=== PATIENT | female | born 1985 | race Caucasian/White ===

== ENCOUNTER 2022-12-09 15:40 | Emergency (ER) | payer BC, MEDICAID, SELFPAY ==
--- OUTSIDE RECORDS SUMMARY | 2022-12-09 15:48 | XMS_ITS ---
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-inflammatorie s (NSAID) Z79.1 Active 884785500044017 Problem Polyarthralgia M25.50 Active 95033002 Problem Myoclonus 333.2 Active 75475419 Problem Fibromyalgia M79.7 Active 007982165 Problem Asthma 493.90 Active 421112444 Problem Vitamin D deficiency E55.9 Active 79200759 Problem Overweight E66.3 Active 602501664 Problem Positive NAEEM (antinuclear antibody) R76.8 Active 814700523 Problem Low back pain M54.5 Active 704223268 ALLERGIES Substance Reaction Event Type Date Status Aspirin unknown Non Drug Allergy Sep, Active paxil sore throat and nose Non Drug Allergy Sep, 022 Active loratadine itcy Non Drug Allergy Sep, Active Amitriptyline Intolerance , keeps awake Non Drug Allergy 2 Sep, Active Cymbalta nausea , and too tired Non Drug Allergy Sep, Active meclizine Unknown Non Drug Allergy Sep, Active Lyrica dizziness, depression ,intolerence Non Drug All ergy Sep, Active Percoset vomiting , dizziness , foggy head Non Drug Moshe rgy Sep, Active Wellbuterin RASH Non Drug Allergy Sep, Activ e ENCOUNTERS Encounter Location Date Diagnosis [facility] [address] [id number] Sep, [facility] [address] [id number] Sep, [facility] [address] [id number] Sep, Herniation of lumbar intervertebral disc with radiculopathy M51.16 ; Right leg weakness M62.81 and Low back pain, unspecified M54.50 [facility] [address] [id number] Aug, Encounter for other administrative examinations Z02.[address] [id number] Jul, Dysuria R30.0 and Acute pharyngitis, unspecified etiology J02.9 [facility] [address] [id number] Jun, [facility] [address] [id number] Apr, Atypical pneumonia J18.9 [facility] [address] [id number] Feb, [facility] [address] [id number] Feb, [facility] [address] [id number] Feb, Encounter for screening laboratory testing for COVID-19 virus Z20.822 [facility] [address] [place] [id number] November, Cough R05 [facility] [address] [id number] Oct, Acute cystitis with hematuria N30.01 and Sprain of other ligament of left ankle, initial encounter S93.492A [facility] [address] [place] [id number] Jul, [facility] [address] [place] [id number] Jul, [address] [id number] Jun, Encounter for occupational health assessment Z02.89 ; Encounter for other administrative examinations Z02.89 and Encounter for PPD test Z11.[address] [id number] Apr, [address] [id number] Apr, [address] [id number] Apr, Fibromyalgia M79.7 ; Positive NAEEM (antinuclear antibody) R76.8 ; Polyarthralgia M25.50 and Low back pain M54.[address] [id number] Dec, Polyarthralgia 719.[address] [id number] Oct, Polyarthralgia 719.49 and Fibromyalgia 729.[address] [id number] Sep, Fibromyalgia 729.1 ; Back pain 724.5 ; Polyarthralgia 719.49 and Nonspecific immunological findings 795.[address] [id number] Jun, [address] [id number] Mar, Back pain 724.5 ; Nonspecific immunological findings 795.79 ; Polyarthralgia 719.49 ; terminal clerk use of medications V58.69 ; Fibromyalgia 729.1 and Vitamin d deficiency 268.[address] [id number] Feb, Fibromyalgia 729.1 ; Memory loss 780.93 ; Polyarthralgia 719.49 ; MALAISE AND FATIGUE NEC 780.79 ; Back pain 724.5 and senior living use of medications V58.69 [facility] [address] [id number] Sep, [facility] [address] [place], [place] [id number] Sep, Memory loss 780.93 and Myoclonus 333.2 [facility] [address] [place], [place] [id number] Sep, Memory loss 780.93 IMMUNIZATIONS Vaccine Route Administration Date Status Flu (adult) IM Intramuscular Jul 19, 2020 Administere d PPD ID Intradermal Jul 16, 2020 Administered SOCIAL HISTORY Never Assessed REASON FOR REFERRAL FUNCTIONAL STATUS PLAN OF CARE Activity Details VITAL SIGNS Height 64 in 2021-10-06 Height 64 in 2021-07-19 Height 64 in 2021-04-28 Height 64 in 2020-11-04 Height 64 in 2015-04-23 Height 64 in 2014-10-23 Height 64 in 2014-10-01 Height 64 in 2013-04-04 Height 64 in 2013-03-16 Weight 180 lbs 2021-10-06 Weight 185 lbs 2021-04-28 Weight 154 lbs 2015-04-23 Weight 152 lbs 2014-10-23 Weight 150 lbs 2014-10-01 Weight 170 lbs 2013-04-04 Weight 170 lbs 2013-03-16 Temperature 97.0 degrees Fahrenheit Temperature 97.6 degrees Fahrenheit Temperature 98.5 degrees Fahrenheit Heart Rate 103 /min 2021-10-06 Heart Rate 101 /min 2021-07-19 Heart Rate 80 /min 2021-04-28 Heart Rate 92 /min 2020-11-04 Heart Rate 80 /min 2015-04-23 Heart Rate 80 /min 2014-10-23 Heart Rate 80 /min 2014-10-01 Heart Rate 88 /min 2013-04-04 Heart Rate 80 /min 2013-03-16 Oximetry 98 2021-10-06 Oximetry 100 2021-07-19 Oximetry 98 2021-04-28 Oximetry 99 2020-11-04 BMI 30.89 kg/m2 2021-10-06 BMI 31.75 kg/m2 2021-04-28 BMI 26.43 kg/m2 2015-04-23 BMI 26.09 kg/m2 2014-10-23 BMI 25.74 kg/m2 2014-10-01 BMI 29.18 kg/m2 2013-04-04 BMI 29.18 kg/m2 2013-03-16 Blood pressure systolic 159 mm Hg Blood pressure diastolic 101 mm Hg 2021-07 MEDICATIONS Medication Instructions Dosage Frequency Start Date End Date Du ration Status HYDROcodone-Acetamin ophen 5-325 MG 5 Activ e Cephalexin 500 MG 5 Active Cyclobenzaprine HCl 5 MG 4 Active PROCEDURES Procedure Date Ordered Result Body Site [facility] - COVID 19 TESTING Mar 09, 2021 OCD Varicella Titer Jul 16, 2020 [facility] - X-RAY EXAM CHEST 2 VIEWS November 27, 2020 OCD Urine Drug Screen (collection only) Jul 16, 2020 CORONAVIRUS AG IA Jul 19, 2021 OCD Hepatitis B Titer Jul 16, 2020 OCD Urine Drug Screen (collection only) Sep 05, 2021 [facility] - HOSPITAL OUT PT CLINIC COLLECTION FOR SARS COV J an 2021 OCD Administration Fee (sepa rate charge for each immunization) first vaccine Jul 16, 2020 OCD Rubella Titer Jul 16, 2020 [facility] - URINALYSIS NONAUTO W/O SCOPE November 04, 2020 OCD Mumps Titer Jul 16, 2020 Flu VACC 6 MONTHS > Jul 19, 2020 OCD Measles Titer Jul 16, 2020 [facility] - URINALYSIS NONAUTO W/O SCOPE Jul 19, 2021 [facility] - HOSPITAL OUT PT CLINIC COLLECTION FOR SARS COV A 2020 IMMUNIZATION ADMINISTRATION Jul 19, 2020 OCD Mantoux test for Tuberculosis (includes read) Jul 16, 2020 AT LEAST 1 RX TRANSMIT ERX SYS Apr 04, 2013 RESULTS Name Result Date Reference Range URINALYSIS DIP w/REFLEX MICRO 2021-09-05 COLOR Yellow YELLOW CLARITY Clear CLEAR SPECIFIC GRAVITY 1.020 1.000-1.030 pH 7.0 5.0-8.0 PROTEIN Negative NEGATIVE GLUCOSE Negative NEGATIVE KETONES Trace NEGATIVE UROBILINOGEN 0.2 E.U./dL 0.2 E.U./DL BILIRUBIN Negative NEGATIVE BLOOD Negative NEGATIVE LEUKOCYTES Negative NEGATIVE NITRITES Negative NEGATIVE HCG SCREEN, URINE 2021-09-05 HCG SCREEN, URINE NEGATIVE NEGATIVE UHCG-TEXT If a urine specimen is too dilute (ie: Specific [place] <1.005) it may not contain customer service representative teller levels of hcg. If the test is negative and is still suspected, a first morning specimen should be obtained and retested. CULTURE URINE 2021-07-19 [facility] URINALYSIS DIP 2021-07-19 CLARITY clear COLOR yellow NITRITES neg REDUCING SUBSTANCES SPECIFIC GRAVITY 1.025 UROBILINOGEN neg BILIRUBIN neg BLOOD neg GLUCOSE neg KETONES neg pH 5 PROTEIN trace LEUKOCYTES + COVID 19 (POS) SOFIA2 SARS Ag 2021-07-19 Flu A Flu B SARS negative CBC, WITH AUTO DIFF 2021-06-28 WBC 8.9 4.8-10.8 RBC 3.92 4.20-5.40 HGB 9.6 12.0-16.0 HCT 30.7 37.0-47.0 MCV 78.3 81.0-99.0 MCH 24.5 27.0-31.0 MCHC 31.3 32.0-37.0 RDW-CV 15.9 11.5-14.5 PLT 368 130-400 MPV 9.8 7.4-10.4 NE% 52.1 42.2-75.2 LY% 33.0 20.5-51.1 MO% 9.5 1.7-9.3 EO% 4.6 0.9-2.9 BA% 0.6 0.0-0.8 NE# 4.7 1.4-6.5 LY# 3.0 1.2-3.4 MO# 0.9 0.1-0.6 EO# 0.4 0.0-0.2 BA# 0.1 0.0-0.2 COMPREHENSIVE METABOLIC PROFILE 2021-06-28 SODIUM 136 134-143 POTASSIUM 3.4 3.5-5.1 CHLORIDE 103 98-111 CO2 23 22-32 CALCIUM 8.8 8.9-10.3 BUN 13 8-26 CREATININE 0.74 0.44-1.00 TOTAL BILIRUBIN 0.2 0.3-1.2 TOTAL PROTEIN 7.4 6.5-8.1 ALBUMIN 4.1 3.5-5.0 ALKALINE PHOS 65 32-92 AST 19 15-41 ALT 12 14-54 A/GAP 10.0 3.0-12.0 B/CR 17.6 8.0-20.0 OSMOLARITY 273 275-295 GLOBULIN 3.3 2.3-3.5 A/G 1.2 1.0-2.5 D-DIMER 2021-06-28 MAGNESIUM 2021-06-28 MAGNESIUM 2.2 1.8-2.5 TROPONIN I 2021-06-28 TROPONIN I <0.01 <=0.05 TROP HEAD Elevated levels of T roponin I are detectable in plasma within 3-6 hours after onset of myocardial infarction, reach peak concentrations in approximately 12-16 hours, and remain elevated for 4-9 days following an AMI. Any conditions resulting in myocardial damage can potentially increase cardiac Troponin I levels above the expected values. Clinical studies have documented these conditions to include: unstable angina, congestive heart failure, myocarditis, cardiac surgery, or invasive testing procedures. Arteritis, coronary embolism, and cocaine or amphetamine use potentially lead to elevated levels. XR CHEST 2 VIEW 2021-06-28 COVID 19 (POS) [employer] Ag Card 2021-04-28 SARS-CoV-2 negative COVID 19 [facility] PCR ([employer]) AUTHORIZED ONLY 2021-03-09 [facility] XR CHEST 2 VIEW 2020-11-27 COVID 19 [facility] PCR ([employer]) 2020-11-11 SARS-CoV-2, PCR DETECTED NOT DETECTED SARS-CoV-2 Comment SARS-CoV2 has been a uthorized by FDA under an Emergency Use Authorization (EUA). Negative results should not be used as the sole basis for diagnosis, treatment, or other patient management decision CBC, WITH AUTO DIFF 2020-11-06 WBC 9.9 4.8-10.8 RBC 4.32 4.20-5.40 HGB 11.0 12.0-16.0 HCT 35.5 37.0-47.0 MCV 82.2 81.0-99.0 MCH 25.5 27.0-31.0 MCHC 31.0 32.0-37.0 RDW-CV 15.6 11.5-14.5 PLT 378 130-400 MPV 9.5 7.4-10.4 NE% 57.9 42.2-75.2 LY% 28.4 20.5-51.1 MO% 9.7 1.7-9.3 EO% 3.0 0.9-2.9 BA% 0.6 0.0-0.8 NE# 5.7 1.4-6.5 LY# 2.8 1.2-3.4 MO# 1.0 0.1-0.6 EO# 0.3 0.0-0.2 BA# 0.1 0.0-0.2 URINALYSIS COMPLETE 2020-11-06 COLOR Yellow YELLOW CLARITY Clear CLEAR SPECIFIC GRAVITY >=1.030 1.000-1.030 pH 5.5 5.0-8.0 PROTEIN Negative NEGATIVE GLUCOSE Negative NEGATIVE KETONES Negative NEGATIVE UROBILINOGEN 0.2 E.U./dL 0.2 E.U./DL BILIRUBIN Negative NEGATIVE BLOOD Trace-lysed NEGATIVE LEUKOCYTES Trace NEGATIVE NITRITES Negative NEGATIVE RBCs 0-3 0-3 SQ EPITHELIAL CELLS 6-10 0-3 CLUE CELLS NONE SEEN RTE CELLS 0-3 TRANSITIONAL EPIs 0-3 BACTERIA 1+ NONE SEEN CRYSTALS NONE SEEN HYALINE CASTS NONE SEEN GRANULAR CASTS NONE SEEN RBC CASTS NONE SEEN WBC CASTS NONE SEEN WAXY CASTS NONE SEEN CELLULAR CASTS NONE SEEN YEAST NONE SEEN TRICHOMONADS NONE SEEN SPERMATOZOA SEEN NONE SEEN URINE CULTURE NO NO COMPREHENSIVE METABOLIC PROFILE 2020-11-06 SODIUM 133 134-143 POTASSIUM 4.0 3.5-5.1 CHLORIDE 103 98-111 CO2 23 22-32 CALCIUM 9.1 8.9-10.3 BUN 11 8-26 CREATININE 0.84 0.44-1.00 TOTAL BILIRUBIN 0.3 0.3-1.2 TOTAL PROTEIN 7.7 6.5-8.1 ALBUMIN 4.3 3.5-5.0 ALKALINE PHOS 72 32-92 AST 20 15-41 ALT 15 14-54 A/GAP 7.0 3.0-12.0 B/CR 13.1 8.0-20.0 OSMOLARITY 266 275-295 GLOBULIN 3.4 2.3-3.5 A/G 1.3 1.0-2.5 LIPASE 2020-11-06 LIPASE 25 18-51 MAGNESIUM 2020-11-06 MAGNESIUM 2.2 1.8-2.5 HCG SCREEN, URINE 2020-11-06 HCG SCREEN, URINE NEGATIVE NEGATIVE UHCG-TEXT If a urine specimen is too dilute (ie: Specific [place] <1.005) it may not contain customer service representative teller levels of hcg. If the test is negative and is still suspected, a first morning specimen jesus CULTURE URINE 2020-11-04 [facility] URINALYSIS DIP 2020-11-04 CLARITY cloudy COLOR yellow NITRITES neg REDUCING SUBSTANCES SPECIFIC GRAVITY 1.025 UROBILINOGEN norm BILIRUBIN neg BLOOD 50 GLUCOSE norm KETONES 2+ pH 5 PROTEIN neg LEUKOCYTES 2+ HEPATITIS B SURFACE ANTIBODY 2020-07-16 MEASLES ANTIBODIES, IgG ([id number]) 2020-07-16 Rubeola Ab, IgG >300.0 Immune >16.4 MUMPS IgG ANTIBODY ([id number]) 2020-07-16 RUBELLA IGG ANTIBODY 2020-07-16 RUBELLA 178.8 >=10.0 RUB HEAD REFERENCE RANGE: (IU /mL) <5.0 : NON-IMMUNE 5.0 - 9.9 : SANTANA ZONE >= 10.0 : IMMUNE VARICELLA ZOSTER IGG AB ([facility]) 2020-07-16 VARICELLA ZOSTER IGG POSITIVE NEGATIV E VZG_TEXT An Equivocal result may occur when a specimen falls close to, but does not achieve, an interpretative threshold. They are statistically uninterpretable. These are repeated for validity and, if requir OCD URINE COLLECTION 2020-07-16 SS-A & SS-B IGG AUTOABS ([id number]) 2015-04-22 Sjogren's Anti-SS-A <0.2 0.0-0.9 Sjogren's Anti-SS-B <0.2 0.0-0.9 SEDIMENTATION RATE 2015-04-22 ESR 18 <=20 CBC, NO DIFF 2015-04-22 WBC 7.8 4.8-10.8 RBC 4.49 4.20-5.40 HGB 13.4 12.0-16.0 HCT 39.6 37.0-47.0 MCV 88.2 81.0-99.0 MCH 29.8 27.0-31.0 MCHC 33.8 32.0-37.0 RDW-CV 12.6 11.5-14.5 PLT 309 130-400 COMPREHENSIVE METABOLIC PROFILE 2015-04-22 SODIUM 140 136-145 POTASSIUM 4.0 3.5-5.1 CHLORIDE 105 98-107 CO2 30 21-32 CALCIUM 9.2 8.5-10.1 BUN 7 7-18 CREATININE 0.57 0.55-1.02 TOTAL BILIRUBIN 0.2 0.0-1.0 TOTAL PROTEIN 6.8 6.4-8.2 ALT 21 12-78 AST 11 15-37 A/GAP 5.0 3.0-12.0 B/CR 12.3 8.0-20.0 OSMOLARITY 277 275-295 GLOBULIN 3.1 2.3-3.5 A/G 1.2 1.0-2.5 C-REACTIVE PROTEIN (CRP) 2015-04-22 CRP 6.4 <=3.0 XR HAND 2 VIEW LEFT XR HAND 2 VIEW RIGHT XR SACROILIAC JOINTS 3 VIEW CBC, WITH AUTO DIFF 2013-03-17 WBC 6.6 4.8-10.8 RBC 4.48 4.20-5.40 HEMOGLOBIN 13.4 12.0-16.0 HEMATOCRIT 39.8 37.0-47.0 MCV 88.8 81.0-99.0 MCH 29.9 27.0-31.0 MCHC 33.7 32.0-37.0 RDW 12.4 11.5-14.5 PLATELETS 295 130-400 MPV 10.4 7.4-10.4 NEUTROPHIL % 49.0 42.2-75.2 LYMPHS % 31.5 20.5-51.1 MONOCYTES % 9.8 1.7-9.3 EOSINOPHILS % 8.9 0.9-2.9 BASOPHILS % 0.6 0.0-0.8 NEUTROPHILS # 3.2 1.4-6.5 LYMPHOCYTES # 2.1 1.2-3.4 MONOCYTES # 0.7 0.1-0.6 EOSINOPHILS # 0.6 0.0-0.2 BASOPHILS # 0.0 0.0-0.2 SEDIMENTATION RATE 2013-03-17 ERYTHROCYTE SEDIMENTATION RATE 16 <=20 NAEEM Comprehensive Panel ([id number]) 2013-03-17 Anti-DNA (DS) Ab Qn <1 0-9 APPAREL SALES LEADER Antibodies 0.2 0.0-0.9 Maxwell Antibodies <0.2 0.0-0.9 Antiscleroderma-70 Antibodies <0.2 0.0-0.9 Sjogren's Anti-SS-A <0.2 0.0-0.9 Sjogren's Anti-SS-B <0.2 0.0-0.9 Antichromatin Antibodies <0.2 0.0 -0.9 Anti-Nichole-1 <0.2 0.0-0.9 Anti-Centromere B Antibodies <0.2 0.0-0.9 ANTI-CCP IgG ANTIBODY ([id number]) 2013-03-17 CCP Antibodies IgG/IgA 1 0-19 CREATINE KINASE (CK) 2013-03-17 CREATINE KINASE 38 26-192 COMPREHENSIVE METABOLIC PROFILE 2013-03-17 SODIUM 139 136-145 CHLORIDE 103 98-107 CO2 29 21-32 CALCIUM 8.9 8.5-10.1 BLOOD UREA NITROGEN 8 7-18 CREATININE 0.54 0.60-1.00 TOTAL BILIRUBIN 0.4 0.0-1.0 TOTAL PROTEIN 7.1 6.4-8.2 ALT 16 12-78 AST 14 15-37 ANION GAP 7.0 3.0-12.0 BUN/CREATININE RATIO 14.8 8.0-20. 0 OSMOLARITY 275 275-295 GLOBULIN 3.3 2.3-3.5 ALBUMIN/GLOBULIN RATIO 1.2 1.0-2 .5 C-REACTIVE PROTEIN (CRP) 2013-03-17 CRP 7.7 <=9.0 HLA-B27 ([id number]) 2013-03-17 HLA-B27 Positive RHEUMATOID FACTOR ([id number]) 2013-03-17 RA Latex Turbid 8.2 0.0-13.9 URIC ACID 2013-03-17 URIC ACID 3.7 2.6-6.0 VITAMIN D - 25(OH) 2013-03-17 VITAMIN D 23.1 30.0-100.0 EEG (Electroencephalogram) REASON FOR VISIT Surgery and referral, Surgical Schedule CALL OR , [facility] radiculopathy lumbar region(MRI 09/10, xray09/07 at [facility]), [facility] radiculopathy lumbar region(MRI 09/10, xray 09/07 at [facility]), OCC udc, OCC udc , [facility] sore throat ?uti-red dodallen, Point of Service COVID 19 Screening, questioning UTI, basilia chest congestion, basilia cough chest congestion sob, Point of Service COVID 19 Screening, Positive Covid, exposure tuesday, return to work?, [facility] ?uti?, OCC flu shot, OCC tb read, OCC ppx, , 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, antibody testing, [facility] fu labs, c/o of discomfort in right ankle and goes up her leg /KN, Just found out she is and due in November /KN, RHE 6 mo f/u, refill on Diclofenac Sodium , [facility] fu xrays, c/o of hands still bothering, RHE , c/o of pain all over body now , having in right hands and legs the most /KN, RHE 3 mos f/u, [facility]HE f/u labs, Back mostly hurts , but gets cramping in left leg and right foot /KN, RHE New Patient , c/o of pain in back , was doing physical therapy /Kn, c/o of pain middle finger right hand /Kn, EEG Results, EEG order, ANANYA MEMORY loss, ananya memory loss-short term Insurance Providers Health Insurance Type Health Plan Insurance Address Health Plan Insurance Phone Health Plan Insurance Name Health Plan Coverage Dates Member ID Patient Relationship to Subscriber Patient Address Patient Phone Patient Name Patient Date of Subscriber ID Subscriber Name Subscriber Date of Group No [place] [address] [facility] [id number] [phone] [place] self Ayde Ramsdell [id number] [place] [address] [facility] [id number] [phone] [place] self Ayde Ramsdell [id number] [facility] [address] [facility] [id number] [facility] self Ayde Ramsdell [id number] MEDICARE [address] [facility] [address] MEDICARE self Ayde Ramsdell [id number] MEDICARE [address] [facility] [address] MEDICARE self Ayde Ramsdell [id number] OCD - ESCREEN INC [address] [address] [facility] [address] OCD - ESCREEN [employer] self Ayde Ramsdell [id number] [facility] [address] [place] [id number] [facility] self Ayde Ramsdell [id number]
--- OUTSIDE RECORDS SUMMARY | 2022-12-09 15:48 | XMS_ITS ---
Author Name Luis, Brooks Address [address] [address] Organization [facility] Address [address] [address] Care Team Providers Care Shoe Worker Name Role Phone Brooks Smith Unavailable PROBLEMS Type Condition ICD9-CM Code RHG40-BD Code Onset Dates Condition Status SNOMED Code Problem Iron deficiency anemia, unspecified iron deficiency anemia type D50.9 Active 81653296 Problem Raynaud's disease without gangrene I73.00 Active 539143203 Problem Fibromyalgia M79.7 Active 909603480 Problem Asthma J45.909 Active [id number] ALLERGIES Substance Reaction Event Type Date Status Lyrica dizziness, depression Drug Allergy May, Active Loratadine Ichy Drug Allergy May, Active Percocet vomiting,foggy head,dizzy Drug Allergy May, Active Meclizine HCl Unknown Drug Allergy May, Active Cymbalta nausea, too tired Drug Allergy May, Act juan Aspirin unknown Drug Allergy May, Active Wellbutrin rash Non Drug Allergy May, Active Zoloft fidgety,crying more Drug Allergy May, A ctive Paxil sore throat and nose Drug Allergy May, Active ENCOUNTERS Encounter Location Date Diagnosis [facility] [address] [address] Apr, [address] [address] May, Dysuria R30.0 [facility] [address] [address] May, Dysuria R30.0 [facility] [address] [address] May, [facility] [address] [address] May, [facility] [address] [address] May, [facility] [address] [address] May, [facility] [address] [place] [address] May, Encounter for laboratory testing for COVID-19 virus Z11.59 [facility] [address] [address] Apr, Physical exam, annual Z00.00 ; Iron deficiency anemia, unspecified iron deficiency anemia type D50.9 ; Asthma J45.909 ; Fibromyalgia M79.7 ; Raynaud's disease without gangrene I73.00 ; Screening for depression Z13.89 ; Screening for diabetes mellitus Z13.1 ; Screening breast examination Z12.39 ; Screening for Hep C Z72.89 ; Screening for bladder cancer Z12.6 ; Alcohol screening Z13.89 and Encounter for drug screening Z02.83 [facility] [address] [address] 16 Apr, 2020 [facility] [address] [address] 02 Apr, 2020 Right foot pain M79.671 [facility] [address] [address] Mar, Edema of right foot R60.0 [facility] [address] [address] Feb, [facility] [address] [address] Sep, [facility] [address] [address] Sep, [facility] [address] [place] [address] Sep, [address] [address] Sep, Iron deficiency anemia, unspecified iron deficiency anemia type D50.9 [facility] [address] [address] Aug, Iron deficiency anemia, unspecified iron deficiency anemia type D50.9 [facility] [address] [place] [address] 24 Aug, 2019 Anemia of unknown etiology D64.9 [facility] [address] [address] Aug, Anemia of unknown etiology D64.9 [facility] [address] [address] Aug, Abdominal pain R10.9 and LLQ abdominal pain R10.32 [facility] [address] [place] [address] 14 Aug, 2019 Slow transit constipation K59.01 and Epigastric pain R10.13 [facility] [address] [place] [address] 13 Aug, 2019 [facility] [address] [place] [address] Aug, [facility] [address] [place] [address] Jun, Headache around the eyes R51 and Muscle spasm M62.838 [facility] [address] [place] [address] Jun, [facility] [address] [place] [address] Jun, [facility] [address] [place] [address] May, [facility] [address] [place] [address] Apr, Pre-employment health screening examination Z02.1 [facility] [address] [place] [address] Feb, Pre-employment health screening examination Z02.1 [facility] [address] [place] [address] Feb, Pre-employment examination Z02.1 [facility] [address] [place] [address] Feb, [facility] [address] [place] [address] Feb, Pre-employment examination Z02.1 [facility] [address] [place] [address] Feb, [facility] [address] [place] [address] Feb, Pre-employment examination Z02.1 [facility] [address] [place] [address] Feb, ADD (attention deficit disorder) F90.0 ; Back pain M54.9 ; Depression F32.9 ; Fibromyalgia M79.7 and Sciatic neuralgia M54.30 [facility] [address] [place] [address] Feb, [facility] [address] [place] [address] Jan, [facility]MIN[facility] [address] [place] [address] Jan, [facility] [address] [place] [address] Dec, Acute back pain M54.9 [facility] [address] [place] [address] Dec, Back pain M54.9 [facility] [address] [place] [address] Dec, Dorsalgia of lumbosacral region M54.5 and Muscle spasm M62.838 [facility] [address] [place] [address] Dec, [facility] [address] [place] [address] November, ADD (attention deficit disorder) F90.0 ; Depression F32.9 ; Chronic fatigue R53.82 ; Fibromyalgia M79.7 and Hot flashes R23.2 [facility] [address] [place] [address] November, Encounter for drug screening Z02.83 ; Alcohol screening Z13.89 and Sciatic neuralgia M54.30 [facility] [address] [place] [address] Oct, [facility] [address] [place] [address] 09 Oct, 2018 Nasal congestion R09.81 ; Subacute frontal sinusitis J01.10 and Postnasal drip R09.82 [facility] [address] [place] [address] Aug, [facility] [address] [place] [address] Aug, [facility] [address] [place] [address] Aug, ADD (attention deficit disorder) F90.0 ; Depression F32.9 ; Chronic fatigue R53.82 and Slow transit constipation K59.01 [facility] [address] [place] [address] 14 Jul, 2018 Well adult health check Z00.00 ; Asthma J45.909 ; Fibromyalgia M79.7 ; ADD (attention deficit disorder) F90.0 ; 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 ; Sciatic neuralgia M54.30 ; Allergic rhinitis J30.9 ; Depression F32.9 ; Mood disorder F39 ; Screening for cervical cancer Z12.4 ; Right wrist pain M25.531 and Chronic fatigue R53.82 [facility] [address] [place] [address] Jun, [facility] [address] [place] [address] Aug, Bronchitis J40 ; Inspiratory wheeze on examination R06.2 and Cough R05 [facility] [address] [place] [address] Jul, [facility] [address] [place] [address] Jul, Episode of dizziness R42 ; Fibromyalgia M79.7 ; ADD (attention deficit disorder) F90.0 and Depression F32.9 [facility] [address] [place] [address] Jul, ADD (attention deficit disorder) F90.0 [facility] [address] [place] [address] May, Fibromyalgia M79.7 and ADD (attention deficit disorder) F90.0 [facility] [address] [place] [address] Apr, Influenza vaccination declined by patient Z28.21 ; Sciatic nerve pain, unspecified laterality M54.30 ; Fibromyalgia M79.7 ; ADD (attention deficit disorder) F90.0 and Depression F32.9 [facility] [address] [place] [address] Apr, Mood disorder F39 ; Fibromyalgia M79.7 ; ADD (attention deficit disorder) F90.0 and Asthma J45.909 [facility] and PSYCH [address] [place] [address] Mar, Fibromyalgia M79.7 and ADD (attention deficit disorder) F90.0 [facility] [address] [place] [address] Feb, Fibromyalgia M79.7 and ADD (attention deficit disorder) F90.0 [facility]-PRIM and PSYCH [address] [place] [address] Jan, ADD (attention deficit disorder) F90.0 ; Fibromyalgia M79.7 ; Mood disorder F39 ; Sciatic neuralgia M54.30 and Tendinitis of right wrist M77.8 [facility] [address] [place] [address] Dec, Fibromyalgia M79.7 [facility] [address] [place] [address] November, [facility] PS[facility] [address] [place] [address] November, Fibromyalgia M79.7 [facility] [address] [place] [address] 10 Oct, 2016 [facility] PS[facility] [address] [place] [address] Oct, Fibromyalgia M79.7 ; ADD (attention deficit disorder) F90.0 ; Depression F32.9 and Mood disorder F39 [facility] PS[facility]CH [address] [place] [address] Sep, [facility] PS[facility] [address] [place] [address] Sep, Depression F32.9 and Fibromyalgia M79.7 [facility] PS[facility] [address] [place] [address] Aug, Fibromyalgia M79.7 [facility] [address] [place] [address] Jul, Conjunctivitis H10.9 and Sinusitis J32.9 [facility] [address] [place] [address] Jul, Fibromyalgia M79.7 ; ADD (attention deficit disorder) F90.0 ; Depression F32.9 and Mood disorder F39 [facility]-PRIM [facility] PSYCH [address] [place] [address] Jun, Fibromyalgia M79.7 [facility] PS[facility] [address] [place] [address] May, Depression F32.9 and ADD (attention deficit disorder) F90.0 [facility] PS[facility]CH [address] [place] [address] May, ADD (attention deficit disorder) F90.0 ; Mood disorder F39 ; Depression F32.9 ; Fibromyalgia M79.7 and Pain of molar K08.89 [facility] [address] [place] [address] Apr, [facility] PS[facility] [address] [place] [address] Apr, Fibromyalgia M79.7 ; ADD (attention deficit disorder) F90.0 ; Depression F32.9 and Mood disorder F39 [facility] [address] [place] [address] Apr, [facility] PS[facility] [address] [place] [address] Mar, z[facility]LPO-PRIM and PSYCH [address] [place] [address] Mar, Chronic pain G89.29 [facility] [address] [address] Mar, [facility] [address] [place] [address] Mar, [facility]PR[facility] PSY[facility] [address] [place] [address] Feb, Fibromyalgia M79.7 [facility]PR[facility] PS[facility] [address] [place] [address] Feb, Depression F32.9 ; Anxiety disorder, unspecified F41.9 and Chronic pain G89.29 [facility] PS[facility] [address] [place] [address] Feb, ADD (attention deficit disorder) F90.0 ; Fibromyalgia M79.7 ; Sciatic neuralgia M54.30 ; Depression F32.9 and Chronic pain G89.29 [facility] PS[facility] [address] [place] [address] Feb, Depression F32.9 [facility] PS[facility] [address] [place] [address] Jan, Screening for cervical cancer Z12.4 [facility]PRIM and PSYCH [address] [place] [address] Jan, ADD (attention deficit disorder) F90.0 and Fibromyalgia M79.7 [facility]-PRIM and PSYCH [address] [place] [address] Dec, [facility] [address] [place] [address] Dec, FATIGUE 780.79 ; Fibromyalgia M79.7 ; ADD (attention deficit disorder) F90.0 ; Sciatic neuralgia M54.30 and Depression F32.9 [facility] PS[facility] [address] [place] [address] Dec, Fibromyalgia M79.7 ; ADD (attention deficit disorder) F90.0 ; Sciatic neuralgia M54.30 ; Depression F32.9 ; FATIGUE 780.79 and Lightheaded R42 [facility]-PRIM and PSYCH [address] [place] [address] Dec, [facility] [address] [place] [address] Oct, Asthma J45.909 ; Depression F32.9 ; Fibromyalgia M79.7 and ADD (attention deficit disorder) F90.0 [facility] [address] [place] [address] Oct, [facility] [address] [place] [address] Oct, [facility] [address] [place] [address] Sep, Fibromyalgia M79.7 ; ADD (attention deficit disorder) F90.0 ; Depression F32.9 ; Dry skin L85.3 ; Z33.1 ; Chronic pain G89.29 and Chronic fatigue R53.82 [facility]-PRIM and PS[facility]CH [address] [place] [address] Aug, [facility] [address] [place] [address] Aug, [facility] [address] [place] [address] Aug, [facility]PRIM and PS[facility] [address] [place] [address] Aug, Asthma J45.909 ; Fibromyalgia M79.7 ; ADD (attention deficit disorder) F90.0 ; Sciatic neuralgia M54.30 ; Allergic rhinitis J30.9 ; Depression F32.9 ; Mood disorder F39 ; Z33.1 ; Chronic pain G89.29 and Chronic fatigue R53.[address] [facility] [address] [place] [address] Jul, [facility] [address] [place] [address] Jun, [facility] [address] [place] [address] Jun, Unspecified asthma, uncomplicated J45.909 ; Autoimmune thyroiditis E06.3 ; Attention-deficit hyperactivity disorder, predominantly hyperactive type F90.1 and Major depressive disorder, single episode, unspecified F32.9 [facility] [address] [place] [address] Jun, [facility] [address] [place] [address] May, Cutaneous wart B07.9 [facility] [address] [place] [address] Apr, [facility] [address] [place] [address] Mar, [facility] [address] [place] [address] Mar, ASTHMA NOS 493.90 ; Fibromyalgia 729.1 and Mood disorder NOS 296.90 [facility] [address] [place] [address] Feb, [facility] [address] [place] [address] Feb, [facility]PR[facility] PS[facility] [address] [place] [address] Feb, [facility] [address] [place] [address] Feb, [facility] [address] [place] [address] Jan, Mood disorder NOS 296.90 [facility] [address] [place] [address] Jan, ADHD (attention deficit hyperactivity disorder), combined type 314.01 [facility] [address] [place] [address] Dec, [facility] [address] [place] [address] Dec, [facility] [address] [place] [address] Dec, Fibromyalgia 729.1 ; Arthralgia 719.40 ; Raynaud phenomenon 443.0 ; Depression (emotion) 311 ; YEAST INFECTION 112.1 and ADHD (attention deficit hyperactivity disorder), combined type 314.01 [facility] [address] [place] [address] November, Attention deficit hyperactivity disorder, combined type 314.01 [facility] PS[facility] [address] [place] [address] November, Attention deficit hyperactivity disorder, combined type 314.01 and Mood disorder NOS 296.[address] [address] Oct, [facility] [address] [place] [address]327 Oct, Mood disorder NOS 296.90 and Attention deficit hyperactivity disorder, combined type 314.01 [facility]PR[facility] PS[facility] [address] [place] [address]01 Oct, Attention deficit hyperactivity disorder, combined type 314.01 and Mood disorder NOS 296.90 [facility] [address] [place] [address] 46733 Sep, [facility] [address] [place] [address] Sep, [facility] [address] [place] [address] Sep, Arthralgia 719.40 ; Fibromyalgia 729.1 ; Raynaud phenomenon 443.0 ; Depression (emotion) 311 and YEAST INFECTION 112.1 [facility] [address] [place] [address] 7[address]68 Sep, Fibromyalgia 729.1 ; Raynaud phenomenon 443.0 ; Arthralgia 719.40 and Depression (emotion) 311 [facility] [address] [place] [address] 57[address] Sep, Fibromyalgia 729.1 ; Raynaud phenomenon 443.0 ; Arthralgia 719.40 ; Depression (emotion) 311 and YEAST INFECTION 112.1 [facility] [address] [place] [address] 8[address]80 Aug, Depression disorder NOS 311 and Fibromyalgia 729.1 [facility] PS[facility] [address] [place] [address] Aug, Fibromyalgia 729.1 [facility] [address] [place] [address]697 Jul, [facility] [address] [place] [address] Jul, Low back pain 724.2 [facility] [address] [place] [address] Jul, Depression (emotion) 311 and Fibromyalgia 729.1 [facility]-PRIM [facility] PSYCH [address] [place] [address] Jun, [facility] [address] [place] [address] Jun, [facility] [address] [place] [address] Jun, Fibromyalgia 729.1 and Depression (emotion) 311 [facility] [address] [place] [address] May, [facility]LPO-PRIM and PSYCH [address] [place] [address] May, [facility] [address] [place] [address] May, Nausea & vomiting 787.01 ; Fibromyalgia 729.1 and Depression disorder NOS 311 [facility] [address] [place] [address] Apr, INF ARTHRITIS NEC-MULT 711.89 and Fibromyalgia 729.1 [facility] [address] [place] [address] Apr, Fibromyalgia 729.1 and INF ARTHRITIS NEC-MULT 711.89 [facility] [address] [place] [address]9705 Apr, Fibromyalgia 729.1 [facility] [address] [place] [address] Mar, IBS 564.1 ; Dyspareunia 625.0 and Sinusitis 473.9 [facility] [address] [place] [address] Mar, URI 465.9 [facility] [address] [place] [address] Feb, [facility] [address] [place] [address] Feb, [facility] [address] [place] [address] Feb, Fibromyalgia 729.1 ; IBS 564.1 and GERD 530.81 [facility] [address] [place] [address] Feb, IBS 564.1 ; Fibromyalgia 729.1 and GERD 530.81 [facility] [address] [place] [address] 28 Jan, 2014 Vaginal timmy 112.1 ; Overactive bladder 596.51 and Amenorrhea 626.0 [facility] [address] [place] [address] 11 Jan, 2014 ADHD (attention deficit hyperactivity disorder) 314.01 ; Fibromyalgia 729.1 and Anxiety 300.00 [facility] [address] [place] [address] 13 Dec, 2013 ADHD (attention deficit hyperactivity disorder) 314.01 ; Fibromyalgia 729.1 ; Wart 078.10 and Dyspareunia 625.0 [facility] [address] [place] [address] Oct, [facility] [address] [place] [address] Oct, [facility] [address] [place] [address] 07 Oct, 2013 Tension headache 307.81 [facility] [address] [place] [address] Sep, [facility] [address] [place] [address] Jul, EAR ANOMALY NOS 744.3 [facility] PS[facility] [address] [place] [address] 16 Jun, 2013 [facility] [address] [place] [address] 16 Jun, 2013 Urinary frequency 788.41 and Dizziness 780.4 [facility] [address] [place] [address] 10 Jun, 2013 Finger pain, right 729.5 and Thoracic outlet syndrome 353.0 [facility] [address] [place] [address] 03 Jun, 2013 [facility] [address] [place] [address] 15 May, 2013 Pleuritic chest pain 786.52 and Fibromyalgia 729.1 [facility] [address] [place] [address] 07 Apr, 2013 [facility] [address] [place] [address] 07 Feb, 2013 [facility] [address] [place] [address] 09 Jan, 2013 Fibromyalgia 729.1 [facility] [address] [place] [address] 04 Dec, 2012 Fibromyalgia syndrome 729.1 [facility] [address] [place] [address] November, CAP (community acquired pneumonia) 486 [facility] [address] [place] [address] Oct, Hypothyroid 244.9 and Fibromyalgia 729.1 [facility] [address] [place] [address] Oct, Hypothyroid 244.9 and Fibromyalgia 729.1 [facility] [address] [place] [address] Sep, Anxiety 300.00 [facility] [address] [place] [address] 04 Sep, 2012 Chest discomfort 786.59 and GERD 530.81 [facility] [address] [place] [address] Jul, LBP (low back pain) 724.2 [facility] [address] [place] [address] Jul, Epigastric abdominal pain 789.06 and Gallbladder polyp 575.6 [facility] [address] [place] [address] Jul, Gallbladder polyp 575.6 [facility] [address] [place] [address] 08 Jul, 2012 [facility] [address] [place] [address] Jul, Epigastric pain 789.06 [facility] [address] [place] [address] Jul, Epigastric pain 789.06 [facility] [address] [place] [address] Jun, Low back pain 724.2 [facility] [address] [place] [address] Apr, INFLUENZA VACCINE-PATIENT REFUSED V64.06 ; Otitis media 382.9 and VERTIGO 438.85 [facility] [address] [place] [address] 05 Apr, 2012 well adult V70.0 ; Fibromyalgia 729.1 and Asthma 493.90 [facility] [address] [place] [address] 04 Mar, 2012 Sciatica 724.3 and Sacroiliitis 720.2 [facility] [address] [place] [address] Jan, UTI 599.0 UNKNOWN 05 Jan, 2012 [facility]-PRIM and PSYCH [address] [place] [address] 00999 Dec, FATIGUE 780.79 ; ALLERGIC RHINITIS NOS 477.9 and Fibromyalgia 729.1 [facility] [address] [place] [address] 05 Dec, 2011 FATIGUE 780.79 [facility] [address] [place] [address] 45339 Dec, FATIGUE 780.79 [facility]PRIM [facility] PS[facility]CH [address] [place] [address] Dec, Mood disorder NOS 296.90 ; ALLERGIC RHINITIS NOS 477.9 and FATIGUE 780.79 [facility] [address] [place] [address] Oct, SCIATICA NEURALGIA 724.3 ; Fibromyalgia 729.1 ; neck pain 723.1 ; 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 and Sinusitis 473.9 [facility] [address] [place] [address] Jul, [facility] [address] [place] [address] 60043 Jul, Back pain 724.5 ; Mood disorder NOS 296.90 ; Fibromyalgia 729.1 ; SCIATICA NEURALGIA 724.3 and Memory impairment 780.93 [facility] [address] [place] [address] 09 Jul, 2011 Hemorrhoids NOS 455.6 [facility] [address] [place] [address] 41140 Jun, [facility] [address] [place] [address] Jun, Hemorrhoids NOS 455.6 ; Fibromyalgia 729.1 ; Mood disorder NOS 296.90 and ECZEMA 691.8 [facility] [address] [place] [address] 16 May, 2011 ADMIN[facility] [address] [place] [address] 15 May, 2011 [facility] [address] [place] [address] 14 Mar, 2011 [facility] TE[facility] [address] [place] [address] 14 Mar, 2011 [facility] [address] [place] [address] Feb, Polyphagia 783.6 and Back pain 724.5 [facility] [address] [place] [address] 64365 Feb, Back pain 724.5 ; Fibromyalgia 729.1 ; syncope 780.2 and Polyphagia 783.6 [facility] [address] [place] [address] 44967 Jan, Anxiety disorder NOS 300.00 [facility] [address] [place] [address] 9[address]63 Jan, [facility] [address] [place] [address] Jan, Dizziness 780.4 [facility] [address] [place] [address] Dec, [facility] [address] [place] [address] 10424 Dec, Attention deficit disorder with combined type hyperactivity 314.01 ; Insomnia NOS 307.42 and Memory loss 780.93 [facility] [address] [place] [address] Dec, Headache 784.0 ; Fibromyalgia 729.1 ; Mood disorder NOS 296.90 and ALLERGIC RHINITIS NOS 477.9 [facility] [address] [place] [address] November, [facility] [address] [place] [address] November, CONJUNCTIVITIS NEC 372.39 and Anxiety disorder NOS 300.00 [facility] [address] [place] [address] November, [facility] [address] [place] [address] November, Chest discomfort 786.59 [facility] [address] [place] [address] November, Chest discomfort 786.59 and Abdominal pain, generalized 789.07 [facility] [address] [place] [address] Oct, Mood disorder NOS 296.90 and Fibromyalgia 729.1 [facility] [address] [place] [address] Sep, [facility] [address] [place] [address] Sep, DTAP VACCINATION V06.1 ; Fibromyalgia 729.1 ; Mood disorder NOS 296.90 and Irregular bleeding NOS 626.4 [facility] [address] [place] [address] Sep, [facility] [address] [place] [address] Sep, [facility] [address] [place] [address] Aug, [facility] [address] [place] [address] Aug, Thyroiditis NOS 245.9 ; Hemorroid, ext 455.3 and Anxiety disorder NOS 300.00 [facility] [address] [place] [address] Aug, syncope 780.2 ; Fibromyalgia 729.1 ; SCIATICA NEURALGIA 724.3 ; ASTHMA NOS 493.90 and Mood disorder NOS 296.90 [facility] [address] [place] [address] Jul, [facility] [address] [place] [address] Jul, Hemorroid, ext 455.3 ; Thyroiditis NOS 245.9 ; Anxiety disorder NOS 300.00 ; Pain in limb 729.5 ; FINGER INJURY NOS 959.5 and Back pain 724.5 [facility] [address] [place] [address] Jul, [facility] [address] [place] [address] Jun, Mood disorder NOS 296.90 and Fibromyalgia 729.1 [facility] [address] [place] [address] May, Mood disorder NOS 296.90 and Fibromyalgia 729.1 [facility] [address] [place] [address] May, ADMINISTRATION [address] [place] [address] May, [facility] [address] [place] [address] Apr, [facility] [address] [place] [address] Apr, [facility] [address] [place] [address] Apr, Depression disorder, NOS 311 ; syncope 780.2 ; Fibromyalgia 729.1 ; ASTHMA NOS 493.90 ; MIGRAINE 346.90 ; Abdominal pain, left lower quadrant 789.04 and PELVIC PAIN 719.45 [facility] [address] [place] [address] Apr, ADMINISTRATION [address] [place] [address] 14 Apr, 2010 Hyperthyroidism NOS, without mention of crisis or storm 242.90 and FATIGUE 780.79 [facility] [address] [place] [address] 08 Apr, 2010 FATIGUE 780.[address] [place] [address] 07 Apr, 2010 FATIGUE 780.79 [facility] [address] [place] [address] Apr, FATIGUE 780.79 [facility] [address] [place] [address] Apr, FATIGUE 780.79 ; ECZEMA 691.8 and Sinusitis 473.9 [facility] [address] [place] [address] Mar, Bronchitis NOS 490 [facility] [address] [place] [address] Mar, BRONCHITIS NOS 490 [facility] [address] [place] [address] Feb, [facility] [address] [place] [address] Feb, LPO-SPECIALTY TEAM [address] [place] [address] Feb, EAR PAIN 388.70 ; Cough 786.2 and BACK DISORDER NOS 724.9 [facility] [address] [place] [address] Feb, [facility] [address] [place] [address] Jan, Depression disorder NOS 311 and Chronic pain, not elsewhere classified 338.29 [facility]IL[facility] [address] [place] [address] Jan, [facility]RE[facility] [address] [place] [address] Jan, [facility] [address] [place] [address] Dec, [facility] [address] [place] [address] Dec, Back pain 724.5 and Depression disorder NOS 311 [facility] [address] [place] [address] Dec, [facility] [address] [place] [address] Dec, [facility] [address] [place] [address] Dec, Backache 724.5 [facility] [address] [place] [address] November, Carpal tunnel syndrome 354.0 ; Tendonitis NOS 726.90 and Hemorrhoids NOS 455.6 [facility] [address] [place] [address] Oct, Fibromyalgia 729.1 ; syncope 780.2 and ASTHMA NOS 493.90 [facility] [address] [place] [address] Sep, Fibromyalgia 729.1 and Rhinitis 472.0 [facility] [address] [place] [address] Jul, Bronchitis NOS 490 [facility] [address] [place] [address] Jun, [facility] [address] [place] [address] Jun, [facility] [address] [place] [address] May, SCIATICA NEURALGIA 724.3 ; Fibromyalgia 729.1 and syncope 780.2 [facility] [address] [place] [address] Mar, Fibromyalgia 729.1 and syncope 780.2 [facility] [address] [place] [address] Feb, syncope 780.2 and Fibromyalgia 729.1 [facility] [address] [place] [address] 19089 Jan, Gastroenteritis NOS 558.9 and Dehydration 276.51 [facility] [address] [place] [address] Oct, [facility] [address] [place] [address] Sep, [facility] [address] [place] [address] 23 Sep, 2008 [facility] [address] [place] [address] 16 Sep, 2008 [facility] [address] [place] [address] 13 Sep, 2008 PAIN, PELVIC, OVARIAN 625.9 [facility] [address] [place] [address] 27 Aug, 2008 Hemorrhoids NOS 455.6 ; Folliculitis 704.8 ; Fibromyalgia 729.1 and Urinary Frequency 788.41 UNKNOWN Aug, UNKNOWN Aug, LPO-SPECIALTY TEAM [address] [place] [address] 13 Aug, 2008 [facility] [address] [place] [address] 13 Aug, 2008 [facility] [address] [place] [address] 30 Jul, 2008 ECZEMA 691.8 ; Acute bronchitis 466.0 and Pain in limb 729.5 zzFAMILY PLANNING [address] [place] [address] 13 Jul, 2008 CONTRACEPTIVE MANGMT NOS V25.9 and Fibromyalgia 729.1 [facility] [address] [place] [address] 07 Jul, 2008 [facility] [address] [place] [address] 28 Jun, 2008 [facility] [address] [place] [address] 16 Jun, 2008 [facility] [address] [place] [address] 09 Jun, 2008 [facility] [address] [place] [address] 09 Jun, 2008 Rash 782.1 and Tachycardia 785.0 CASE MANAGEMENT [address] [place] [address] 20 May, 2008 [facility] [address] [place] [address] 19 May, 2008 [facility] [address] [place] [address] 14 May, 2008 Tachycardia 785.0 and Dizziness 780.4 UNKNOWN 12 May, 2008 [facility]ABILITATION [address] [place] [address] 10 May, 2008 [facility] [address] [place] [address]77 04 May, 2008 [facility] [address] [place] [address] 31098 04 May, 2008 Tachycardia 785.0 and Dizziness 780.4 IMMUNIZATIONS Vaccine Route Administration Date Status ketorolac (toradol) 60 mg/2ml IM Intramuscular December Administered Tdap STATE Adacel 7[place] [id number] IM Intramuscular September 29, 2010 Administered -Refused Influenza vaccine Unknown Jul 04, 2012 A dministered ketorolac (toradol) 30 mg/ml IM Intramuscular Jul 09, 2019 Administered ketorolac (toradol) 60 mg/2ml IM Intramuscular Aug 01, 2014 Administered zzInfluenza FLUARIX QUAD NON STATE 3yrs and up IM Intramuscular May 03, 2019 Administered ketorolac (toradol) 30 mg/ml IM Intramuscular November 15, 2018 Administered SOCIAL HISTORY Qualifiers Date Never Smoker REASON FOR REFERRAL FUNCTIONAL STATUS PLAN OF CARE Activity Details VITAL SIGNS Height 65 in 2020-06-05 Height 65 in 2020-05-09 Height 65 in 2020-04-18 Height 65 in 2020-03-18 Height 65 in 2019-09-07 Height 65 in 2019-08-31 Height 65 in 2019-07-09 Height 65 in 2019-02-20 Height 65 in 2019-01-03 Height 65 in 2018-12-04 Height 65 in 2018-11-15 Height 65 in 2018-10-24 Height 65 in 2018-09-04 Height 65 in 2018-07-31 Height 65 in 2017-09-13 Height 65 in 2017-07-26 Height 65 in 2017-05-17 Height 65 in 2017-01-24 Height 65 in 2016-10-21 Height 65 in 2016-07-27 Height 65 in 2016-07-22 Height 65 in 2016-06-09 Height 65 in 2016-06-03 Height 65 in 2016-05-05 Height 65 in 2016-03-15 Height 65 in 2016-01-07 Height 65 in 2015-09-22 Height 65 in 2015-08-20 Height 65 in 2015-06-23 Height 65 in 2015-05-22 Height 65 in 2015-03-21 Height 65 in 2014-12-20 Height 65 in 2014-11-26 Height 65 in 2014-10-18 Height 65 in 2014-09-17 Height 65 in 2014-08-29 Height 65 in 2014-08-01 Height 65 in 2014-07-23 Height 65 in 2014-06-25 Height 65 in 2014-05-24 Height 65 in 2014-05-10 Height 65 in 2014-04-09 Height 65 in 2014-04-05 Height 65 in 2014-03-07 Height 65 in 2014-02-11 Height 65 in 2014-01-25 Height N/A in 2013-12-28 Height 65 in 2013-10-22 Height N/A in 2013-08-01 Height N/A in 2013-07-02 Height 65 in 2013-06-26 Height N/A in 2013-06-01 Height N/A in 2013-01-23 Height N/A in 2012-12-19 Height N/A in 2012-11-15 Height N/A in 2012-11-03 Height N/A in 2012-09-18 Height 65 in 2012-08-11 Height N/A in 2012-07-27 Height N/A in 2012-07-20 Height N/A in 2012-07-04 Height N/A in 2012-05-15 Height N/A in 2012-04-21 Height N/A in 2012-03-21 Height N/A in 2012-01-21 Height N/A in 2011-12-29 Height N/A in 2011-12-17 Height N/A in 2011-10-29 Height 65 in 2011-08-03 Height N/A in 2011-07-26 Height N/A in 2011-06-23 Height N/A in 2011-03-10 Height N/A in 2011-01-25 Height N/A in 2011-01-05 Height N/A in 2010-12-17 Height N/A in 2010-12-04 Height N/A in 2010-12-01 Height 65 in 2010-11-04 Height 65 in 2010-09-29 Height 65 in 2010-09-08 Height 65 in 2010-07-29 Height 65 in 2010-05-13 Height 65 in 2010-04-22 Height 65 in 2010-02-09 Height 65 in 2010-01-12 Height 65 in 2009-12-02 Height 65 in 2009-11-06 Height 65 in 2009-10-10 Height N/A in 2008-07-30 Weight 183.8 lbs 2020-06-05 Weight 178 lb 4 oz lbs 2020-05-09 Weight 181 lbs 2020-04-18 Weight 179 lbs 2020-03-18 Weight 171 lbs 2019-09-07 Weight 176 lbs 2019-08-31 Weight 172.0 lbs 2019-07-09 Weight 172 lbs 2019-03-06 Weight 172.8 lbs 2019-02-20 Weight 174.4 lbs 2019-01-03 Weight 175.6 lbs 2018-12-04 Weight 175 lbs 2018-11-15 Weight 174.2 lbs 2018-10-24 Weight 172.2 lbs 2018-09-04 Weight 170.2 lbs 2018-07-31 Weight 164.6 lbs 2017-09-13 Weight 164.2 lbs 2017-07-26 Weight 162.8 lbs 2017-05-17 Weight 154.2 lbs 2017-01-24 Weight 153.2 lbs 2016-10-21 Weight 151 lbs 2016-07-27 Weight 153 lbs 2016-07-22 Weight 161.0 lbs 2016-06-09 Weight 160.6 lbs 2016-06-03 Weight 162.4 lbs 2016-05-05 Weight 164.6 lbs 2016-03-15 Weight 168.4 lbs 2016-01-07 Weight 170.2 lbs 2015-09-22 Weight 166.6 lbs 2015-08-20 Weight 160 lbs 2015-06-23 Weight 157.4 lbs 2015-05-22 Weight 156.2 lbs 2015-03-21 Weight 152 lbs 2014-12-20 Weight 151.0 lbs 2014-11-26 Weight 154.4 lbs 2014-10-18 Weight 150.4 lbs 2014-09-17 Weight 152.0 lbs 2014-08-29 Weight 158 lbs 2014-08-01 Weight 155.4 lbs 2014-07-23 Weight 156.8 lbs 2014-06-25 Weight 161.8 lbs 2014-05-24 Weight 163.6 lbs 2014-05-10 Weight 170 lbs 2014-04-09 Weight 170 lbs 2014-04-05 Weight 169.8 lbs 2014-03-07 Weight 166 lbs 2014-02-11 Weight 173.6 lbs 2014-01-25 Weight 171 lbs 2013-12-28 Weight 171.2 lbs 2013-10-22 Weight 166 lbs 2013-08-01 Weight 168 lbs 2013-07-02 Weight 173 lbs 2013-06-26 Weight 168 lbs 2013-06-01 Weight 170 lbs 2013-01-23 Weight 170 lbs 2012-12-19 Weight 165 lbs 2012-11-15 Weight 164 lbs 2012-11-03 Weight 165 lbs 2012-09-18 Weight 165 lbs 2012-08-11 Weight 170 lbs 2012-07-27 Weight 170 lbs 2012-07-20 Weight 168 lbs 2012-07-04 Weight 170 lbs 2012-05-15 Weight 169 lbs 2012-04-21 Weight 172 lbs 2012-03-21 Weight 170 lbs 2012-01-21 Weight 166.4 lbs 2011-12-29 Weight 164.2 lbs 2011-12-17 Weight 160 lbs 2011-10-29 Weight 160 lbs 2011-08-03 Weight 163 lbs 2011-07-26 Weight 160 lbs 2011-06-23 Weight 161.2 lbs 2011-03-10 Weight 154 lbs 2011-01-25 Weight 161.2 lbs 2011-01-05 Weight 165 lbs 2010-12-17 Weight 162 lbs 2010-12-04 Weight 162 lbs 2010-12-01 Weight 155 lbs 2010-11-04 Weight 158 lbs 2010-09-29 Weight 155 lbs 2010-09-08 Weight 155 lbs 2010-07-29 Weight 152 lbs 2010-05-13 Weight 153 lbs 2010-04-22 Weight 154 lbs 2010-04-08 Weight 154 lbs 2010-03-24 Weight 153 lbs 2010 Weight 154 lbs 2010-02-09 Weight 158 lbs 2010-01-12 Weight 153.2 lbs 2010-01-02 Weight 152 lbs 2009-12-02 Weight 151 lbs 2009-11-06 Weight 152 lbs 2009-10-10 Weight 161 lbs 2009-08-15 Weight 156 lbs 2009-06-10 Weight 150 lbs 2009-04-01 Weight 150 lbs 2009-03-17 Weight 154 lbs 2009-02-05 Weight 151 lbs 2008-09-27 Weight 154 lbs 2008-09-13 Weight 150 lbs 2008-08-16 Weight N/A lbs 2008-07-30 Weight N/A lbs 2008-06-25 Weight N/A lbs 2008-05-31 Weight N/A lbs 2008-05-21 BMI 30.58 kg/m2 2020-06-05 BMI 29.66 kg/m2 2020-05-09 BMI 30.12 kg/m2 2020-04-18 BMI 29.78 kg/m2 2020-03-18 BMI 28.45 kg/m2 2019-09-07 BMI 29.28 kg/m2 2019-08-31 BMI 28.62 kg/m2 2019-07-09 BMI 28.75 kg/m2 2019-02-20 BMI 29.02 kg/m2 2019-01-03 BMI 29.22 kg/m2 2018-12-04 BMI 29.12 kg/m2 2018-11-15 BMI 28.99 kg/m2 2018-10-24 BMI 28.65 kg/m2 2018-09-04 BMI 28.32 kg/m2 2018-07-31 BMI 27.39 kg/m2 2017-09-13 BMI 27.32 kg/m2 2017-07-26 BMI 27.09 kg/m2 2017-05-17 BMI 25.66 kg/m2 2017-01-24 BMI 25.49 kg/m2 2016-10-21 BMI 25.12 kg/m2 2016-07-27 BMI 25.46 kg/m2 2016-07-22 BMI 26.79 kg/m2 2016-06-09 BMI 26.72 kg/m2 2016-06-03 BMI 27.02 kg/m2 2016-05-05 BMI 27.39 kg/m2 2016-03-15 BMI 28.02 kg/m2 2016-01-07 BMI 28.32 kg/m2 2015-09-22 BMI 27.72 kg/m2 2015-08-20 BMI 26.62 kg/m2 2015-06-23 BMI 26.19 kg/m2 2015-05-22 BMI 25.99 kg/m2 2015-03-21 BMI 25.29 kg/m2 2014-12-20 BMI 25.12 kg/m2 2014-11-26 BMI 25.69 kg/m2 2014-10-18 BMI 25.03 kg/m2 2014-09-17 BMI 25.29 kg/m2 2014-08-29 BMI 26.29 kg/m2 2014-08-01 BMI 25.86 kg/m2 2014-07-23 BMI 26.09 kg/m2 2014-06-25 BMI 26.92 kg/m2 2014-05-24 BMI 27.22 kg/m2 2014-05-10 BMI 28.29 kg/m2 2014-04-09 BMI 28.29 kg/m2 2014-04-05 BMI 28.25 kg/m2 2014-03-07 BMI 27.62 kg/m2 2014-02-11 BMI 28.89 kg/m2 2014-01-25 BMI 28.45 kg/m2 2013-12-28 BMI 28.49 kg/m2 2013-10-22 BMI 27.62 kg/m2 2013-08-01 BMI 27.95 kg/m2 2013-07-02 BMI 28.79 kg/m2 2013-06-26 BMI 27.95 kg/m2 2013-06-01 BMI 28.29 kg/m2 2013-01-23 BMI 28.29 kg/m2 2012-12-19 BMI 27.45 kg/m2 2012-11-15 BMI 27.29 kg/m2 2012-11-03 BMI 27.45 kg/m2 2012-09-18 BMI 27.45 kg/m2 2012-08-11 BMI 28.29 kg/m2 2012-07-27 BMI 28.29 kg/m2 2012-07-20 BMI 27.95 kg/m2 2012-07-04 BMI 28.29 kg/m2 2012-05-15 BMI 28.12 kg/m2 2012-04-21 BMI 28.62 kg/m2 2012-03-21 BMI 28.29 kg/m2 2012-01-21 BMI 27.69 kg/m2 2011-12-29 BMI 27.32 kg/m2 2011-12-17 BMI 26.62 kg/m2 2011-10-29 BMI 26.62 kg/m2 2011-08-03 BMI 27.12 kg/m2 2011-07-26 BMI 26.62 kg/m2 2011-06-23 BMI 26.82 kg/m2 2011-03-10 BMI 25.62 kg/m2 2011-01-25 BMI 26.82 kg/m2 2011-01-05 BMI 27.45 kg/m2 2010-12-17 BMI 26.96 kg/m2 2010-12-04 BMI 26.96 kg/m2 2010-12-01 BMI 25.79 kg/m2 2010-11-04 BMI 26.29 kg/m2 2010-09-29 BMI 25.79 kg/m2 2010-09-08 BMI 25.79 kg/m2 2010-07-29 BMI 25.29 kg/m2 2010-05-13 BMI 25.46 kg/m2 2010-04-22 BMI 25.62 kg/m2 2010-02-09 BMI 26.29 kg/m2 2010-01-12 BMI 25.29 kg/m2 2009-12-02 BMI 25.12 kg/m2 2009-11-06 BMI 25.29 kg/m2 2009-10-10 BMI N/A kg/m2 2008-07-30 Temperature 98.1 degrees [facility] Temperature 96.8 degrees Fahrenheit Temperature 97.5 degrees Fahrenheit Temperature 98.1 degrees Fahrenheit Temperature 98 degrees Fahrenheit 2019-09-07 Temperature 98.3 degrees Fahrenheit Temperature 97.7 degrees Fahrenheit Temperature 98 degrees Fahrenheit 2019-03-06 Temperature 97.4 degrees Fahrenheit Temperature 98 degrees Fahrenheit 2019-01-03 Temperature 97.7 degrees Fahrenheit Temperature 99.8 degrees Fahrenheit Temperature 97.9 degrees Fahrenheit Temperature 97.7 degrees Fahrenheit Temperature 96.7 degrees Fahrenheit Temperature 99 degrees Fahrenheit 2017-09-13 Temperature 98.3 degrees Fahrenheit Temperature 98.5 degrees Fahrenheit Temperature 97.3 degrees Fahrenheit Temperature 98.4 degrees Fahrenheit Temperature 98.2 degrees Fahrenheit Temperature 97.9 degrees Fahrenheit Temperature 97.7 degrees Fahrenheit Temperature 97.6 degrees Fahrenheit Temperature 97.3 degrees Fahrenheit Temperature 97.5 degrees Fahrenheit Temperature 97.0 degrees Fahrenheit Temperature 98.3 degrees Fahrenheit Temperature 97.5 degrees Fahrenheit Temperature 97.5 degrees Fahrenheit Temperature 97.8 degrees Fahrenheit Temperature 97.8 degrees Fahrenheit Temperature 97.7 degrees Fahrenheit Temperature 97.1 degrees Fahrenheit Temperature 97.4 degrees Fahrenheit Temperature 96.9 degrees Fahrenheit Temperature 97.4 degrees Fahrenheit Temperature 97.6 degrees Fahrenheit Temperature 96.6 degrees Fahrenheit Temperature 98.3 degrees Fahrenheit Temperature 96.3 degrees Fahrenheit Temperature 96.1 degrees Fahrenheit Temperature 96.5 degrees Fahrenheit Temperature 98.0 degrees Fahrenheit Temperature 97.6 degrees Fahrenheit Temperature 97.8 degrees Fahrenheit Temperature 97.4 degrees Fahrenheit Temperature 97.8 degrees Fahrenheit Temperature 96.3 degrees Fahrenheit Temperature 96.5 degrees Fahrenheit Temperature 96.8 degrees Fahrenheit Temperature TYMPANIC:97.5 degrees Fahrenheit 2012-09-18 Temperature TYMPANIC:95.8 degrees Fahrenheit 2012-08-11 Temperature TYMPANIC:98.2 degrees Fahrenheit 2012-07-27 Temperature TYMPANIC:96.8 degrees Fahrenheit 2012-07-20 Temperature TYMPANIC:96.8 degrees Fahrenheit 2012-07-04 Temperature TYMPANIC:97.8 degrees Fahrenheit 2012-05-15 Temperature TYMPANIC:97.7 degrees Fahrenheit 2012-04-21 Temperature TYMPANIC:97.5 degrees Fahrenheit 2012-03-21 Temperature TYMPANIC:96.3 degrees Fahrenheit 2012-01-21 Temperature TYMPANIC:98.7 degrees Fahrenheit 2011-12-29 Temperature TYMPANIC:96.9 degrees Fahrenheit 2011-12-17 Temperature TYMPANIC:98.9 degrees Fahrenheit 2011-10-29 Temperature TYMPANIC:98.8 degrees Fahrenheit 2011-08-03 Temperature TYMPANIC:96.7 degrees Fahrenheit 2011-07-26 Temperature TYMPANIC:98.0 degrees Fahrenheit 2011-06-23 Temperature TYMPANIC:99.7 degrees Fahrenheit 2011-03-10 Temperature 97.7 degrees Fahrenheit Temperature TYMPANIC:98.9 degrees Fahrenheit 2011-01-05 Temperature 97.9 degrees Fahrenheit Temperature 97.7 degrees Fahrenheit Temperature 97.4 degrees Fahrenheit Temperature TYMPANIC:97.6 degrees Fahrenheit 2010-11-04 Temperature 98.0 degrees Fahrenheit Temperature TYMPANIC:98.3 degrees Fahrenheit 2010-07-29 Temperature 97.8 degrees Fahrenheit Temperature 97.7 degrees Fahrenheit Temperature 98.2 degrees Fahrenheit Temperature 97.9 degrees Fahrenheit Temperature 97 degrees Fahrenheit 2010 Temperature 98.9 degrees Fahrenheit Temperature 98.8 degrees Fahrenheit Temperature 99.0 degrees Fahrenheit Temperature 98.3 degrees Fahrenheit Temperature 97.7 degrees Fahrenheit Temperature 97.7 degrees Fahrenheit Temperature 97.4 degrees Fahrenheit Temperature 97.7 degrees Fahrenheit Temperature 98.1 degrees Fahrenheit Temperature 97.9 degrees Fahrenheit Temperature 98.0 degrees Fahrenheit Temperature 98.3 oral degrees Fahrenheit 200 03-18-30 Temperature N/A degrees Fahrenheit 9 Heart Rate 105 /min 2020-06-05 Heart Rate 92 /min 2020-05-09 Heart Rate 91 /min 2020-04-18 Heart Rate 98 /min 2020-03-18 Heart Rate 109 /min 2019-09-07 Heart Rate 84 /min 2019-08-31 Heart Rate 95 /min 2019-07-09 Heart Rate 82 /min 2019-03-06 Heart Rate 85 /min 2019-02-20 Heart Rate 74 /min 2019-01-03 Heart Rate 90 /min 2018-12-04 Heart Rate 88 /min 2018-11-15 Heart Rate 87 /min 2018-10-24 Heart Rate 96 /min 2018-09-04 Heart Rate 73 /min 2018-07-31 Heart Rate 90 /min 2017-09-13 Heart Rate 76 /min 2017-07-26 Heart Rate 92 /min 2017-05-17 Heart Rate 74 /min 2017-01-24 Heart Rate 84 /min 2016-10-21 Heart Rate 109 /min 2016-07-27 Heart Rate 80 /min 2016-07-22 Heart Rate 116 /min 2016-06-09 Heart Rate 74 /min 2016-06-03 Heart Rate 74 /min 2016-05-05 Heart Rate 87 /min 2016-03-15 Heart Rate 88 /min 2016-01-07 Heart Rate 85 /min 2015-09-22 Heart Rate 95 /min 2015-08-20 Heart Rate 82 /min 2015-06-23 Heart Rate 83 /min 2015-05-22 Heart Rate 80 /min 2015-03-21 Heart Rate 79 /min 2014-12-20 Heart Rate 78 /min 2014-11-26 Heart Rate 76 /min 2014-10-18 Heart Rate 88 /min 2014-09-17 Heart Rate 86 /min 2014-08-29 Heart Rate 96 /min 2014-08-01 Heart Rate 84 /min 2014-07-23 Heart Rate 80 /min 2014-06-25 Heart Rate 82 /min 2014-05-24 Heart Rate 64 /min 2014-05-10 Heart Rate 80 /min 2014-04-09 Heart Rate 78 /min 2014-04-05 Heart Rate 91 /min 2014-03-07 Heart Rate 72 /min 2014-02-11 Heart Rate 62 /min 2014-01-25 Heart Rate 90 /min 2013-12-28 Heart Rate 91 /min 2013-10-22 Heart Rate 76 /min 2013-08-01 Heart Rate 68 /min 2013-07-02 Heart Rate 72 /min 2013-06-26 Heart Rate 74 /min 2013-06-01 Heart Rate 83 /min 2013-01-23 Heart Rate 77 /min 2012-12-19 Heart Rate 91 /min 2012-11-15 Heart Rate 79 /min 2012-11-03 Heart Rate 73 /min 2012-09-18 Heart Rate 70 /min 2012-08-11 Heart Rate 82 /min 2012-07-27 Heart Rate 83 /min 2012-07-20 Heart Rate 91 /min 2012-07-04 Heart Rate 71 /min 2012-05-15 Heart Rate 89 /min 2012-04-21 Heart Rate 84 /min 2012-03-21 Heart Rate 76 /min 2012-01-21 Heart Rate 102 /min 2011-12-29 Heart Rate 83 /min 2011-12-17 Heart Rate 85 /min 2011-10-29 Heart Rate 96 /min 2011-08-03 Heart Rate 94 /min 2011-07-26 Heart Rate 83 /min 2011-06-23 Heart Rate 106 /min 2011-03-10 Heart Rate 77 /min 2011-01-25 Heart Rate 83 /min 2011-01-05 Heart Rate 80 /min 2010-12-17 Heart Rate 96 /min 2010-12-04 Heart Rate 82 /min 2010-12-01 Heart Rate 88 /min 2010-11-04 Heart Rate 102 /min 2010-09-29 Heart Rate 88 /min 2010-09-08 Heart Rate 79 /min 2010-07-29 Heart Rate 102 /min 2010-05-13 Heart Rate 98 /min 2010-04-22 Heart Rate 102 /min 2010-04-08 Heart Rate 90 /min 2010-03-24 Heart Rate 102 /min 2010 Heart Rate 93 /min 2010-02-09 Heart Rate 105 /min 2010-01-12 Heart Rate 79 /min 2010-01-02 Heart Rate 96 /min 2009-12-02 Heart Rate 68 /min 2009-11-06 Heart Rate 102 /min 2009-10-10 Heart Rate 106 /min 2009-08-15 Heart Rate 94 /min 2009-06-10 Heart Rate 104 /min 2009-04-01 Heart Rate 109 /min 2009-03-17 Heart Rate 85 /min 2009-02-05 Heart Rate 98 /min 2008-09-27 Heart Rate 73 /min 2008-09-13 Heart Rate 80 /min 2008-08-16 Heart Rate N/A /min 2008-07-30 Heart Rate N/A /min 2008-06-25 Heart Rate N/A /min 2008-05-31 Heart Rate N/A /min 2008-05-21 Respiratory Rate 20 /min 2020-06-05 Respiratory Rate 16 /min 2020-05-09 Respiratory Rate 16 /min 2020-04-18 Respiratory Rate 18 /min 2020-03-18 Respiratory Rate 18 /min 2019-09-07 Respiratory Rate 18 /min 2019-08-31 Respiratory Rate 16 /min 2019-07-09 Respiratory Rate 18 /min 2019-03-06 Respiratory Rate 17 /min 2019-02-20 Respiratory Rate 18 /min 2019-01-03 Respiratory Rate 16 /min 2018-12-04 Respiratory Rate 18 /min 2018-11-15 Respiratory Rate 18 /min 2018-10-24 Respiratory Rate 18 /min 2018-09-04 Respiratory Rate 16 /min 2018-07-31 Respiratory Rate 18 /min 2017-09-13 Respiratory Rate 16 /min 2017-07-26 Respiratory Rate 16 /min 2017-05-17 Respiratory Rate 18 /min 2017-01-24 Respiratory Rate 16 /min 2016-10-21 Respiratory Rate 16 /min 2016-07-27 Respiratory Rate 18 /min 2016-07-22 Respiratory Rate 18 /min 2016-06-03 Respiratory Rate 16 /min 2016-05-05 Respiratory Rate 18 /min 2016-03-15 Respiratory Rate 18 /min 2016-01-07 Respiratory Rate 18 /min 2015-09-22 Respiratory Rate 18 /min 2015-08-20 Respiratory Rate 16 /min 2015-06-23 Respiratory Rate 16 /min 2015-05-22 Respiratory Rate 18 /min 2015-03-21 Respiratory Rate 16 /min 2014-12-20 Respiratory Rate 16 /min 2014-09-17 Respiratory Rate 16 /min 2014-08-29 Respiratory Rate 16 /min 2014-08-01 Respiratory Rate 16 /min 2014-07-23 Respiratory Rate 16 /min 2014-06-25 Respiratory Rate 16 /min 2014-05-24 Respiratory Rate 16 /min 2014-05-10 Respiratory Rate 20 /min 2014-04-09 Respiratory Rate 16 /min 2014-04-05 Respiratory Rate 16 /min 2014-03-07 Respiratory Rate 16 /min 2014-02-11 Respiratory Rate 16 /min 2014-01-25 Respiratory Rate 16 /min 2013-12-28 Respiratory Rate 18 /min 2013-08-01 Respiratory Rate 16 /min 2013-07-02 Respiratory Rate 18 /min 2013-06-26 Respiratory Rate 16 /min 2013-06-01 Respiratory Rate 16 /min 2013-01-23 Respiratory Rate 16 /min 2012-12-19 Respiratory Rate 16 /min 2012-11-15 Respiratory Rate 16 /min 2012-11-03 Respiratory Rate 16 /min 2012-09-18 Respiratory Rate 16 /min 2012-08-11 Respiratory Rate 18 /min 2012-07-27 Respiratory Rate 16 /min 2012-07-20 Respiratory Rate 16 /min 2012-07-04 Respiratory Rate 16 /min 2012-05-15 Respiratory Rate 16 /min 2012-04-21 Respiratory Rate 16 /min 2012-03-21 Respiratory Rate 16 /min 2012-01-21 Respiratory Rate 16 /min 2011-12-29 Respiratory Rate 18 /min 2011-12-17 Respiratory Rate 16 /min 2011-10-29 Respiratory Rate 16 /min 2011-08-03 Respiratory Rate 18 /min 2011-07-26 Respiratory Rate 16 /min 2011-06-23 Respiratory Rate 18 /min 2011-03-10 Respiratory Rate 18 /min 2011-01-25 Respiratory Rate 16 /min 2011-01-05 Respiratory Rate 16 /min 2010-12-17 Respiratory Rate 18 /min 2010-12-04 Respiratory Rate 18 /min 2010-12-01 Respiratory Rate 16 /min 2010-11-04 Respiratory Rate 16 /min 2010-09-29 Respiratory Rate 16 /min 2010-09-08 Respiratory Rate 16 /min 2010-07-29 Respiratory Rate 18 /min 2010-05-13 Respiratory Rate 18 /min 2010-04-22 Respiratory Rate 18 /min 2010-04-08 Respiratory Rate 18 /min 2010-03-24 Respiratory Rate 18 /min 2010 Respiratory Rate 18 /min 2010-02-09 Respiratory Rate 18 /min 2010-01-12 Respiratory Rate 18 /min 2010-01-02 Respiratory Rate 18 /min 2009-12-02 Respiratory Rate 18 /min 2009-11-06 Respiratory Rate 18 /min 2009-10-10 Respiratory Rate 18 /min 2009-08-15 Respiratory Rate 18 /min 2009-06-10 Respiratory Rate 18 /min 2009-02-05 Respiratory Rate 18 /min 2008-09-13 Respiratory Rate 18 /min 2008-08-16 Respiratory Rate N/A /min 2008-07-30 Respiratory Rate N/A /min 2008-06-25 Respiratory Rate N/A /min 2008-05-31 Oximetry 99 % 2020-06-05 Oximetry 99 % 2020-04-18 Oximetry 98 % 2020-03-18 Oximetry 100 % 2019-09-07 Oximetry 100 % 2019-08-31 Oximetry 94 % 2019-07-09 Oximetry 99 % 2019-02-20 Oximetry 98 % 2019-01-03 Oximetry 97 % 2018-12-04 Oximetry 99 % 2018-11-15 Oximetry 98 % 2018-10-24 Oximetry 100 % 2018-09-04 Oximetry 98 % 2018-07-31 Oximetry 98 % 2017-09-13 Oximetry 98 % 2017-07-26 Oximetry 100 % 2017-05-17 Oximetry 99 % 2017-01-24 Oximetry 96 % 2016-10-21 Oximetry 98 % 2016-07-27 Oximetry 98 % 2016-07-22 Oximetry 97 % 2016-06-09 Oximetry 99 % 2016-06-03 Oximetry 98 % 2016-05-05 Oximetry 98 % 2016-03-15 Oximetry 98 % 2016-01-07 Oximetry 99 % 2015-09-22 Oximetry 100 % 2015-08-20 Oximetry 98 % 2015-06-23 Oximetry 99 % 2015-05-22 Oximetry 100 % 2015-03-21 Oximetry 98 % 2014-12-20 Oximetry 98 % 2014-11-26 Oximetry 99 % 2014-10-18 Oximetry 98 % 2014-09-17 Oximetry 98 % 2014-08-29 Oximetry 98 % 2014-08-01 Oximetry 99 % 2014-07-23 Oximetry 98 % 2014-06-25 Oximetry 98 % 2014-05-24 Oximetry 98 % 2014-05-10 Oximetry 98 % 2014-04-09 Oximetry 98 % 2014-04-05 Oximetry 98 % 2014-03-07 Oximetry 98 % 2014-02-11 Oximetry 98 % 2013-12-28 Oximetry 98 % 2013-10-22 Oximetry 98 % 2013-08-01 Oximetry 98 % 2013-07-02 Oximetry 97 % 2013-06-26 Oximetry 98 % 2013-06-01 Oximetry 99 % 2013-01-23 Oximetry 98 % 2012-12-19 Oximetry 98 % 2012-11-15 Oximetry 98 % 2012-11-03 Oximetry 97 % 2012-09-18 Oximetry 97 % 2012-08-11 Oximetry 98 % 2012-07-27 Oximetry 99 % 2012-07-20 Oximetry 98 % 2012-07-04 Oximetry 98 % 2012-05-15 Oximetry 98 % 2012-04-21 Oximetry 98 % 2012-03-21 Oximetry 98 % 2012-01-21 Oximetry 97 % 2011-12-29 Oximetry 98 % 2011-12-17 Oximetry 98 % 2011-10-29 Oximetry 98 % 2011-08-03 Oximetry 99 % 2011-07-26 Oximetry 98 % 2011-06-23 Oximetry 94 % 2011-03-10 Oximetry 97 % 2011-01-25 Oximetry 98 % 2011-01-05 Oximetry 97 % 2010-12-17 Oximetry 98 % 2010-12-04 Oximetry 98 % 2010-12-01 Oximetry 98 % 2010-11-04 Oximetry 97 % 2010-09-29 Oximetry 99 % 2010-09-08 Oximetry 97 % 2010-07-29 Oximetry 97 % 2010-05-13 Oximetry 98% % 2010-04-22 Oximetry 97 % 2010-04-08 Oximetry 98 % 2010-03-24 Oximetry 98 % 2010 Oximetry 98% % 2010-02-09 Oximetry 96% % 2010-01-12 Oximetry 99 % 2010-01-02 Oximetry 98 % 2009-12-02 Oximetry 98 % 2009-11-06 Oximetry 98 % 2009-10-10 Oximetry 98% % 2009-08-15 Oximetry 100 % 2009-06-10 Oximetry 99 % 2009-04-01 Oximetry 99 % 2009-03-17 Oximetry 98% % 2009-02-05 Oximetry 98 % 2008-09-27 Oximetry 99% % 2008-09-13 Oximetry 99 % 2008-08-16 Oximetry N/A % 2008-06-25 Oximetry N/A % 2008-05-31 Oximetry N/A % 2008-05-21 Blood pressure systolic 144 mm Hg Blood pressure diastolic 92 mm Hg 2020-05 MEDICATIONS Medication Instructions Dosage Frequency Start Date End Date Duration Status Fluconazole 150 MG Orally Take 1 today and repeat 7 days 1 tablet May, 7 days Active Ferrous Sulfate 325 (65 Fe) MG Orally Once a day 1 tablet 24h Sep, 30 day(s) Active PROCEDURES Procedure Date Ordered Result Body Site N.CL,HYDRATION IV INF,31min to 60min,(25392) February 05, 2009 Med Rec done (16013) January 03, 2019 Tdap STATE Adacel 7yrs or ol [place] [address] September 29, 2010 Med Rec done (29282) Sep 13, 2017 ANNUAL FITTER HAND EX CLIN BRST W/O PELV EX May 13, 2010 N.CL,INJ FEE,SC/IM,Per med,[facility](29211) Aug 01, 2014 EKG, TRACING Jun 01, 2013 Tob non-user ([id number]) Jul 31, 2018 SBIRT screen w intervention (70914) May 09, 2020 Med Rec done (53868) January 07, 2016 Med Rec done (36453) Mar 15, 2016 Med Rec done (05889) Jul 22, 2016 Med Rec done (93226) October 21, 2016 Med Rec done (68625) May 17, 2017 No HTN DX,BP <120/80 (09950) January 24, 2017 Med Rec done (61657) Jul 26, 2017 Med Rec done (66999) December 04, 2018 HTN DX,Systolic BP <140 (07619) Sep 04, 2018 BMI elevated, counseled (64037) October 24, 2018 HTN DX,Diastolic BP<90 (47896) December 04, 2018 BMI elevated, counseled (74958) Mar 15, 2016 BMI elevated, counseled (94453) January 07, 2016 CRYOTHERAPY OF SKIN December 28, 2013 CRYOTHERAPY OF SKIN May 22, 2015 SBIRT SCREEN negative May 09, 2020 N.CL,STATE inj.fee,(Single o r Combination)(44837) September 29, 2010 EKG INTER (11219) Jun 01, 2013 ketorolac (toradol) 15 mg/ml Aug 01, 2014 UA-DIPSTICK (chg code 81699) Sep 13, 2008 WET PREP/GIL IN OFFICE (chg code 86066) February 11, 2014 VISUAL ACUITY SCREEN May 13, 2010 N.CL,NonState Inj.fee(single or combo)(23715) Jul 09, 2019 BMI elevated, counseled (63439) Sep 13, 2017 BMI elevated, counseled (63872) January 03, 2019 Influenza HISTORY Jul 04, 2012 ANNUAL FITTER HAND EX CLIN BRST W/O PELV EX May 09, 2020 EKG, TRACING September 18, 2012 GLUCOSE BLOOD TEST(25130) January 25, 2011 N.CL,IV INF,HYDRATION, EA.ADD(55272) February 05, 2009 Tob non-user ([id number]) December 04, 2018 SBIRT SCREEN negative November 15, 2018 Tob non-user ([id number]) Feb 20, 2019 Tob non-user ([id number]) Aug 31, 2019 PSYCH DIAG EVAL W/MED SRVCS October 18, 2014 Tob non-user ([id number]) Mar 15, 2016 Tob non-user ([id number]) January 07, 2016 Tob non-user (25949) May 17, 2017 UA-DIPSTICK (chg code 70921) Jul 02, 2013 Tob non-user ([id number]) January 24, 2017 UA-DIPSTICK (chg code 87704) January 21, 2012 Tob non-user ([id number]) October 21, 2016 Tob non-user (79405) Jul 22, 2016 CSA-Signed 2015-08-20 N/A UA-DIPSTICK (chg code 93378) Sep 07, 2019 INFLUENZA ASSAY W/OPTIC (42110) Sep 13, 2017 POSTURAL VITAL SIGNS 2016-01-07 laying 120/ 80, 78 sittting 126/88, 78 standing 128/90, 102 Med Rec done (51365) Jul 31, 2018 CSA-Signed 2016-10-21 N/A Dep screen neg (65427) May 09, 2020 No HTN DX,BP <120/80 (92029) January 07, 2016 SOLUTION,NS,1000cc=1 unit February 05, 2009 No HTN DX,BP <120/80 (06745) Mar 15, 2016 UA-DIPSTICK (chg code 58272) September 27, 2008 Med Rec done (78261) Aug 31, 2019 PSYTX PT&/FAM W/E&M 30 MIN December 12, 2014 BMI elevated, counseled (11670) Feb 20, 2019 SBIRT screen w intervention (08696) November 15, 2018 Tob non-user (13136) October 24, 2018 Med Rec done (91337) Sep 04, 2018 BMI elevated, counseled (71636) December 04, 2018 BMI elevated, counseled (99948) Jul 26, 2017 BMI elevated, counseled (13182) May 17, 2017 Med Rec done (42657) January 24, 2017 BMI elevated, counseled (22764) October 21, 2016 BMI elevated, counseled (16010) Jul 22, 2016 Tob non-user (76054) November 15, 2018 No HTN DX,BP <120/80 (03423) October 24, 2018 Med Rec done (99666) Feb 20, 2019 Med Rec done (25006) November 15, 2018 No HTN DX,BP <120/80 (00635) November 15, 2018 Hgb fingerstick (Hemocue) (c hg code 86005) January 07, 2016 No HTN DX,BP <120/80 (61018) Jul 31, 2018 UA-DIPSTICK ([facility] code 07059) Jul 31, 2018 No HTN DX,BP <120/80 (24161) Feb 20, 2019 BMI elevated, counseled (53196) November 15, 2018 Med Rec done (69149) October 24, 2018 HTN DX,Systolic BP <140 (58635) December 04, 2018 HTN DX,Diastolic BP<90 (66450) Sep 04, 2018 No HTN DX,BP <120/80 (39285) Jul 26, 2017 No HTN DX,BP <120/80 (70607) May 17, 2017 No HTN DX,BP <120/80 (29372) Jul 22, 2016 N.CL,INJ FEE,SC/IM,Per med,[facility](40644) January 03, 2019 No HTN DX,BP <120/80 (40011) October 21, 2016 ketorolac (toradol) 30 mg/ml November 15, 2018 N.CL,INJ FEE,SC/IM,Per med,[facility](75006) November 15, 2018 SBIRT screening 2018-11-15 N/A SBIRT screening 2020-05-09 N/A Tob non-user (89771) January 03, 2019 Tob non-user (72191) Sep 13, 2017 EKG INTER (71421) September 18, 2012 Dep scrn pos, plan documente d (56936) Mar 15, 2016 Dep scrn pos, plan documente d (60109) January 07, 2016 Dep scrn pos, plan documente d (04487) May 09, 2020 PURE TONE AUDIOMETRY, AIR May 13, 2010 ketorolac (toradol) 30 mg/ml Jul 09, 2019 No HTN DX,BP <120/80 (98906) January 03, 2019 BMI elevated, counseled (55775) Jul 31, 2018 No HTN DX,BP <120/80 (02269) Sep 13, 2017 Tob non-user (79094) Jul 26, 2017 Tob non-user ([id number]) Sep 04, 2018 ketorolac (toradol) 60 mg/2ml January 03, 2019 RESULTS Name Result Date Reference Range UA-DIP PLUS MICRO W/REFLEX 2020-06-10 AMORPH NEG NEG BACT NEGATIVE NEGATIVE CECILY Negative NEGATIVE BLD Large NEGATIVE CAST NEG NEG CLARITY Clear CLEAR COL Yellow YELLOW CORTNEY NEG NEG EPI FEW NEG GLU. Negative NEGATIVE KET Negative NEGATIVE CORA Negative NEGATIVE MUC 2+ NEGATIVE NIT Negative NEGATIVE PH 5.5 5.0-8.0 PROT Negative NEGATIVE RBCS 20-30 NEG SG 1.030 1.001-1.035 UROBILINOGEN 0.2 0.2-1.0 WBCS NEGATIVE NEGATIVE COVID BINAXNOW RAPID AG CARD 2020-06-05 COVID BINAX RAPID AG THIS TEST WAS PERFO RMED ON THE BINAXNOW COVID CARD. THE BINAX NOW IS A LATERAL FLOW IMMUNOASSAY [id number] TEST USED FOR THE QUALITATIVE DETECTION OF NUCLEOCAPSID ANTIGEN FROM SARS-CoV-2 IN DIRECT NASAL SWABS. COVID COMMENT XJJLG-XR-XJUE TESTS ARE LIMITED BY DECREASED SENSITIVITY. PROVIDERS SHOULD USE CLINICAL JUDGEMENT WHEN DECIDING WHETHER A NEGATIVE RESULT ON A LZVZX-UY-LJNY TEST REQUIRES CONFIRMATION WITH A LABORATORY BASED MOLECULAR (RT-PCR) TEST. COVID RAPID AG NEGATIVE NEGATIVE UA DIPSTICK ONLY-with CPE/ICC 2020-05-09 COLOR yellow CLARITY SPECIFIC GRAVITY 1.030 GLUCOSE neg BILIRUBIN small KETONES neg BLOOD trace PH 5.0 PROTEIN neg UROBILINOGEN 0.2 LEUKOCYTES trace NITRITES neg BASEMET 2020-05-09 BUN 9 7-25 CA 9.0 8.6-10.3 CO2 25 22-32 CL 106 98-110 CREATS 0.69 0.60-1.20 EGFR >60 >=60 GLUC 84 74-106 K+ 4.0 3.5-5.1 NA 137 136-144 CBC WITH AUTO DIFF 2020-05-09 BA# 0.07 0.00-0.20 EO# 0.44 0.00-0.70 IG# 0.01 0.00-0.10 LY# 1.90 1.50-4.00 MO# 0.73 0.20-0.80 ANC# 4.3 1.4-7.9 BA% 0.9 EO% 5.9 HCT 37.8 37.0-47.0 HGB 11.9 12.5-16.0 IG% 0.1 0.0-1.0 LY% 25.5 MCH 27.2 27.0-32.0 MCHC 31.5 32.0-36.0 MCV 87 78-100 MO% 9.8 MPV 10.9 7.4-11.0 NE% 57.8 PLT 333 140-440 RBC 4.4 4.5-6.0 RDW 13.5 11.0-14.0 WBC 7.5 4.0-12.0 FERRITIN 2020-05-09 FERR 4.0 10.0-158.0 IRON SATURATION 2020-05-09 FESAT 13 20-45 FE 65 50-212 TIBC 481.6 250.0-450.0 HEP-C, AB Screen ([id number]) 2020-05-09 Hep C Virus Ab <0.1 0.0-0.9 PHQ-9 2020-06-11 Score 9 X Foot R 3V 2020-05-02 See Below For Report US Extremity UNILATERAL*CPT-[id number] 2020-04-11 See Below For Report OCCULT BLOOD ICT TRPL CARD (FOBT) (blue card) 2019-09-18 OCCBL-ICT NEGATIVE NEGATIVE VITAMIN B12 2019-09-10 VITAMIN B12 301.00 193.00-986.00 FERRITIN 2019-09-10 FERR 5.0 10.0-158.0 IRON SATURATION 2019-09-10 FESAT 3 20-45 FE 16 50-212 TIBC 491.4 250.0-450.0 UA DIPSTICK ONLY-DIAGNOSTIC 2019-09-07 Color yellow Clarity Specific Hes[place]us 1.025 Glucose. neg Bilirubin neg Ketones neg Blood small PH 7.0 Protein neg Urobilinogen 0.2 Nitrite neg Leukocytes neg CBC WITH AUTO DIFF 2019-09-07 BA# 0.06 0.00-0.20 EO# 0.38 0.00-0.70 IG# 0.01 0.00-0.10 LY# 2.44 1.50-4.00 MO# 0.52 0.20-0.80 ANC# 3.7 1.4-7.9 BA% 0.8 EO% 5.3 HCT 33.7 37.0-47.0 HGB 10.0 12.5-16.0 IG% 0.1 0.0-1.0 LY% 34.2 MCH 23.6 27.0-32.0 MCHC 29.7 32.0-36.0 MCV 80 78-100 MO% 7.3 MPV 10.5 7.4-11.0 NE% 52.3 PLT 436 140-440 RBC 4.2 4.5-6.0 RDW 16.6 11.0-14.0 WBC 7.1 4.0-12.0 COMPMET 2019-09-07 ALB 4.5 3.4-5.0 ALKP 59 34-104 ALT 9 7-52 AST 15 13-39 BUN 12 7-25 CA 9.3 8.6-10.3 CO2 28 22-32 CL 103 98-110 CREATS 0.71 0.60-1.20 DBIL 0.1 0.0-0.2 EGFR >60 >=60 GLUC 84 74-106 K+ 3.9 3.5-5.1 NA 137 136-144 TBIL 0.3 0.3-1.2 TP 7.1 6.0-8.3 CRP-INFLAM 2019-09-07 CRP 0.3 0.0-0.9 X Acute Abdominal Series 2019-08-31 See Below For Report GLUCOSE 2019-06-15 GLUC 121 74-106 LDL (DIRECT) 2019-06-15 LDL 134 5-99 LIPID PANEL (no LDL) 2019-06-15 CHOL/HDL 4.0 0.0-4.5 CHOL 194 0-200 HDL 48 23-92 TRIG 119 0-200 VARICELLA-ZOSTER VIRUS IGG ANTIBODIES 2019-04-19 Varicella Zoster IgG 1214 Immune >165 HEP-B, SURFACE ANTIBODY 2019-03-08 HepB surface AB Reactive MEASLES IGG ANTIBODIES 2019-03-08 RUBELLA 2019-03-08 RUBINTERP NON-IMMUNE: < 10.0 I U/ML SANTANA ZONE: 10.0-14.0 IU/ML IMMUNE: >15 IU/ML NOTE NEW REFERENCE RANGES OF 06/01/16 LTL TEST PERFORMED AT: [facility] [address] [place] [address] CLIA # [id number] RUB 218.10 QUANTIFERON-TB GOLD 2019-03-08 MUMPS ANTIBODIES IGG 2019-03-08 Mumps Abs, IgG 100.0 Immune >10.9 EZ SCREEN DRUG TEST 2019-03-06 EZ INTERP NEGATIVE AMP BARBS BENZO PARAM DRGINT EZDRGINT METHAMP MTD OPIAT OXY PCP PROPOXYPHENE THC X Lumbar Spine 4V 2019-01-11 See Below For Report X Wrist R 3V 2018-07-31 See Below For Report CYTO: PAP SMEAR W/HPV (5yr regimen) RESULT INFLUENZA A/B 2017-09-13 INFLUENZA A neg INFLUENZA B neg INFLUENZA A ANTIGEN INFLUENZA B ANTIGEN CYTO: PAP SMEAR-Screening 2016-01-23 RESULT normal GLUCOSE POINT OF CARE 2016-01-07 COMMENT1 Provider Notified CBC WITH AUTO DIFF 2016-01-07 BA# 0.0 0.0-0.2 CMV IGG & IGM ABS 2016-01-07 COMPMET 2016-01-07 IZAIAH-BORGES SPECIMEN 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 2016-01-07 FERRITIN 2016-01-07 MAGNESIUM 2016-01-07 MONOSPOT 2016-01-07 VITAMIN D (25-HYDROXY) TOTAL 2016-01-07 IRON SATURATION 2016-01-07 IZAIAH-BORGES VCA IGM ANTIBODIES 2016-01-07 EBV Ab VCA, IgM <36.0 0.0-35.9 HEMOGLOBIN FINGERSTICK 2016-01-07 Hgb-fingerstick 12.4 Hct-calculated URINE TOX SCREEN 2015-08-20 Sjogren's Ab (SS-A,SS-B)-sen d out 2015-04-22 SS-A IgG Ab <0.2 SS-B IgG Ab Sjogren's Ab X Hand L 3V 2014-10-15 See Below For Report X Hand R 3V 2014-10-15 See Below For Report X SI joints 2014-10-15 See Below For Report DSDNA AUTOANTIBODIES 2014-09-19 GLENNY(NRNP/SM IGG AUTOANTIBODIES) 2014-09-19 SCL-70 IGG AUTOANTIBODIES 2014-09-19 ANTISCLERODERMA-70 ANTIBODIES <0.2 0.0-0.9 NAEEM (Antinuclear Abs) 2014-09-17 CBC WITH AUTO DIFF 2014-09-17 COMPMET 2014-09-17 RHEUMATOID FACTOR QUAL 2014-09-17 RF NEGATIVE NEGATIVE RPR 2014-09-17 SED RATE 2014-09-17 CRP-INFLAM 2014-05-10 CRP <0.2 0.0-0.9 SED RATE 2014-05-10 CBC WITH AUTO DIFF 2014-03-07 COMPMET 2014-03-07 TSH 2014-03-07 TSH 2.332 0.360-4.800 FP-UA TEST CPT-810 25 (41040) RESULT negative UA DIPSTICK ONLY-DIAGNOSTIC Color yellow Clarity clear Specific Hesperus >1.030 Glucose. net Bilirubin neg Ketones neg Blood neg PH 6.5 Protein trace Urobilinogen 0.2 Nitrite small Leukocytes neg UA DIPSTICK ONLY-DIAGNOSTIC 2013-07-02 Color yellow Clarity Specific Hes[place]us >=1.030 Glucose. neg Bilirubin small Ketones trace Blood trace-lysed PH 5.5 Protein trace Urobilinogen 0.2 Nitrite neg Leukocytes neg X Finger R 2013-06-26 See Below For Report EKG #1-IN OFFICE TODAY 2013-06-01 CYTO: PAP SMEAR-Screening RESULT TSH 2012-11-03 THYROID STIMULATING HORMONE 1.245 0.360-4.800 EKG #1-IN OFFICE TODAY AMYLASE 2012-07-20 AMYLASE 49 25-115 CBC WITH MANUAL DIFF 2012-07-20 COMPMET 2012-07-20 LIPASE 2012-07-20 LIPASE 90 73-393 US: Abdomen CPT-14882 2012-07-25 URINE TOX SCREEN 2012-05-15 DRUG -12 DRUG-URINE 2012-05-15 UA DIPSTICK ONLY-with CPE/ICC 2012-04-21 COLOR yellow CLARITY clear SPECIFIC GRAVITY 1.020 GLUCOSE neg BILIRUBIN neg KETONES neg BLOOD neg PH 7.0 PROTEIN 30 mg/dl UROBILINOGEN 0.2 LEUKOCYTES neg NITRITES neg UA DIPSTICK ONLY-DIAGNOSTIC 2012-01-21 Color yellow Clarity cloudy Specific Hesperus 1.025 Glucose. neg Bilirubin neg Ketones neg Blood mod PH 6.5 Protein 100 mg Urobilinogen 1.0 Nitrite small Leukocytes pos UA-COLONY COUNT ONLY 2012-01-21 UA-MICRO W/REFLEX 2012-01-21 AMORPHOUS NEG NEG SENSITIVITY ORGANISM 1 2012-01-21 Amikacin <=2 S UA DIPSTICK ONLY-DIAGNOSTIC 2011-12-17 Color Yellow Clarity Specific Hesperus 1.010 Glucose. neg Bilirubin neg Ketones neg Blood trace PH 5.0 Protein neg Urobilinogen 0.2 Nitrite neg Leukocytes neg VITAMIN B12 2011-12-17 CBC WITHOUT DIFF (Hemogram) 2011-12-17 HEMATOCRIT 42.3 37.0-47.0 HCG QUALITATIVE SERUM (+/-) 2011-12-17 T3 TOTAL 2011-12-17 T3 TOTAL 1.50 0.87-1.78 T4 FREE 2011-12-17 TSH 2011-12-17 THYROID STIMULATING HORMONE 1.539 0.360-3.740 VITAMIN D (25-HYDROXY) TOTAL 2011-12-17 X ray: Lumbar Spine 2-3 Views 2011-08-04 GLUCOSE 2011-03-10 HEMOGLOBIN A1C 2011-03-10 HCG QUALITATIVE SERUM (+/-) 2011-03-10 GLUCOSE-OFFICE FINGERSTICK GLU OFFICE FINGERSTICK TIME OF TEST LAST TIME ATE POSTURAL VITAL SIGNS MR Brain w/o (*36120) 2011-01-21 Image Accessible MRA Head W/O Contrast CPT-77700 2011-02-08 MRI Head W/O Contrast CPT-17498 2011-01-09 D-DIMER 2010-12-01 Cardio:Holter (cont/24-48hr) CPT-91810,73446 T3 TOTAL 2010-09-08 T3 TOTAL 1.58 0.87-1.78 T4 FREE 2010-09-08 TSH 2010-09-08 THYROID STIMULATING HORMONE 0.646 0.340-5.600 X ray: Lumbar Spine 2-3 Views US: Pelvic CPT-39669 CTScan Abd & Pelvis W/contra st CPT-19060,59343 MULTIPLE LABS 2010-05-15 EKG #1-IN OFFICE TODAY UA DIPSTICK ONLY-with CPE/ICC 2010-05-13 COLOR yellow CLARITY SPECIFIC GRAVITY 1.030 GLUCOSE neg BILIRUBIN neg KETONES neg BLOOD Trace-Intact PH 5.0 PROTEIN neg UROBILINOGEN 0.2 LEUKOCYTES neg NITRITES neg UA-MICRO W/REFLEX 2010-05-13 AMORPHOUS SMALL NEG T3 FREE 2010-04-24 T4 FREE 2010-04-24 US: THYROID CPT-87393 CBC WITHOUT DIFF (Hemogram) 2010-04-22 HEMATOCRIT 42.5 37.0-47.0 TSH 2010-04-22 THYROID STIMULATING HORMONE 0.024 0.340-5.600 Physical Therapy-Eval.&Treat Path:Placenta UA DIPSTICK ONLY-DIAGNOSTIC Color yellow Clarity Specific Hesperus 1.030 Glucose. neg Bilirubin 1+ Ketones 2+ Blood 2+ PH 5.5 Protein 1+ Urobilinogen 0.2 Nitrite neg Leukocytes neg UA-Urine ,AT HOSPITAL HCG URINE neg US: Pelvic CPT-15837 UA DIPSTICK ONLY-DIAGNOSTIC Color yellow Clarity Specific Hes[place] 1.020 Glucose. neg Bilirubin neg Ketones neg Blood neg PH 6.5 Protein trace Urobilinogen 1.0 Nitrite neg Leukocytes 1+ MAN DIFF 2008-06-25 ANC 2.61 - T4 2008-06-25 T4 9.76 6.09-12.23 Anti-Nuclear Cytoplasmic Ab-send out 2008-06-25 Tsevjphfdqwszxi-Vhckbvx-murf out 2008-06-25 AUTO DIFFERENTIAL 2008-06-25 CBC WITHOUT DIFF (Hemogram) 2008-06-25 HCT@L 40.4 37.0-47.0 COMPMET 2008-06-25 TSH 2008-06-25 TSH 2.059 0.34-5.60 SED RATE 2008-06-25 Cardio: Echo,TTE,Age 14+,transTHORACIC* CPT-61473 CYTO: PAP SMEAR-Screening RESULT REASON FOR VISIT Urine, Dysuria, RE:RE:Re:RE:Itchy, RE:Re:RE:Itchy, Re:RE:Itchy, Itchy, fever, chills, nausea, headache, thirsty, CPE ICC, CPE Roomer, CT referral, F/U right foot pain, pt declines flu shot today, pt states she thinks she may have trigger finger, pt states foot still feels tender at times, foot painwith swelling, lump, Right foot has been swollen since Tuesday., pt states there is pain from knee down to foot., ok with Lis, pt states it's hard to wiggle toes, but not as bad as it was this weekend., Medications reviewed w/pt,med. list is correct, No medication refills needed at this time., Vaginal yeast infectin, see Rx tab, Iron Medication, Start iron, Venofer referral-LW, LAB, Iron Defiiciney Anemia, BLOOD WORK, anemia, labs, abdominal pain, constipation (1 week) - pt says she has tried several otc meds but nothing helps. Says her bm is all liquid, abdomen very tender and some what hard, Update on BM, Constipation, Headache, , Medication refills needed for the following: flexeril to [facility] in [facility] /rd, Not feeling well, Results of lab work LMOM 06/18, Employee Blood Draw, Weeks Pre-employment blood draw, Employee Health Varicella titer-LW, f/u depression, fibromyagia pain, work, weeks pre-emp labs, immunization, Weeks Pre employment labs, Weeks Employee Health, Pre Employment Labs-CLEARED, f/u back and leg, no other concerns today, worknote request, appt with ROSS 02/20, Peer to peer - MR Lumbar Spine, Results of xray, back update, continued back pain , back pain, depression/ adhd, pt has concerns that she may be going through early menopause having decreased menstral cycles and huynh, would like to know if there is something she can take for being overly emotional., back pain since Tuesday night, Correcting allergies, possible sinus infection, pt states she has had sinus pressure and nasal congestion for the past 2 weeks. pt states her chest is on fire firstthing in the morning and when she coughs it really hurts. pt states the mucus that she coughs up and that drains from her nose has a weird smell and taste and is yellowish in color. pt denies any fevers, nausea, and vomitting but states she has had some diarrhea for the past 3 days., feeling better, constipation, f/u depression/ adhd, disability, stomach pain-cramping states thinks its gas related, med list patient states she did not fill adderall as it cost too much for one month supply and only takes singulair and cyclbenzaprine as needed, cpe, BS-XLZ-Lpengt<40, CHECK IF IMMUNIZATIONS ARE UP TO DATE , Meds reviewed by pt,no longer taking: ALL OF HER MEDICATIONS- SHE IS NOT TAKING ANYTHING , Pt states she has no concerns, 07/12E CPE, WELL AND MED F/U, cough up green junk in the am, seems like she is wheezing, push 2010 MRI, fibromyagia, depression, adhd, 07/20 LMOMadderall, [place] & Adderall refills, er f/u, back pain, not any better, pt says she was given 10 flexeril and has t aken them but not helping, pt declines flu vaccine, norco, adderall refill, cpe, depression, adhd, fibromyalgia, [place] & Adderall refills, [place] & Adderall refills, F/U APPT PER PT, pt statesshe would like to discuss meds and such with GB, [place] refill, update meds, norco refill, CSA SIGNED WITH NICOLAS PRYOR ON 10/21/2016 FOR [facility], f/u chronic pain, adhd, depression, pt says scalp has been itchy with bumps on there that are tender, f/u chronic pain, adhd, depression patient RS, norco refill, citalopram and norco refill, New Refill Request, ? pink eye, f/u depression [place] recommendation, [place] and citalopram refill, depression, Medications reviewed w/pt,med. list is correct- JS, No medication refills needed at this time., f/u medication,depression, discuss whatthe babies pedi said about med, [place] [facility]i-05/07-[facility], f/u on meds, pt says she is not takingany meds right now, Does not want flu shot, referral to [facility] pain care, Re:RE:New Refill Request, f/u depression / adhd medication, New Refill Request- , Back spams, Call me , ? on pain care, depressi on med , 2 mo f/u, 2 month F/U--patient r/s 03/08, Multiple refills, pap order, Adderall and norco refill, Vit D level low-, blood draw, depression f/u, discuss restarting protonix, New Refill Request, Multiple refills-11/05 JS, wellness and depression f/u, cancel appt request, Cancel Appointment Request, OV NEW PCP/3MO F/U, refill adderral, & norco, release form, CSA SIGNED WITH NICOLAS PRYOR ON 08/20/2015-HK, visit notes, F/U medication, r/s appt, f/u medication pt. called to cancel. 08/11/15 ac, Adderall & [place] refills 07/17 dm, 3 mos f/u meds, pt has no concerns, New Refill Request, wart removal , Multiple refills, [place] & Adderall refills 04/15-HK, 3 mo med f/u, Pt. states she has no new concerns today. , Pt. stated she needed [facility]ill of [facility]ul[facility], New Refill Request, prsciption strength lice tx, Adderall and [place] refills, Adderall refill, Multiple refills-[place], New Refill Request, [place] refill, New Refill Request, 3 mos f/u meds, pt is taking a new med for her fibro but unsure of what it is, [id number], [id number], [place] & Adderall refills, [id number], Medications reviewed w/pt,med. list is correct-JS, No medication refills needed at this time., 1st no show for SATHISH , [id number]--ibcoqsz r/s 11/05, Multiple refills, depression, Medications reviewed w/pt,med. list is correct-JS, No medication refills needed at this time., referral toRachell [facility]ing, lab results/ new lab orders , LAB WORK, blood draw, med f/u, pt want to wonders if there is more then fibro going on/ states no matter whats being done she is not getting better, med f/u, pt would like to discuss fibromyalgia, states it has been very painful., flexeril 5mg tab refill, Adderall, [place] rxs, back pain, pt lower back has been causing her more pain lately - states that shad states he notices inflamation/ back and leg muscles have been tight to due it, MED F/U , Adderall and [place] refill, Needs to try fluoxetine, f/u med, pt states she stopped Nortriptyline, it was making her fall asleep, pt states she brought a whole list and will go over it with PD, MED F/U, CSA SIGNED WITH DR. CONNOR ON 05/24/2014, Adderall and [place] refills, med f/u, 2 week med f/u, pt states that she hasn't been able to eat, states she is hungery but can't keep food down, blood draw, swollen and sore/fibro, pt states she has been having a fibro flare up for two weeks - in a lot of pain, norco and adderall, 6 week f/u vulvitis, dyspareunia. CPE female age 19-44, folic acid. CPE female age 19-44, folic acid, cold, pt has been sick for the past week very congested hurts to blow her knows, refill clonazapam, LAB, blood draw, 1 mo med f/u, pt states that she hasn't been feeling well - has been really nauseous and stomach hurts all the time, vaginitis. Pt was treated for BV and yeast infection in November. Pt is still having symptoms. She and her use nystatin after intercourse and that seems to soothe the itchyness. Pt has wondered if the burning on urination could be an infection. She also asks if she could be , despite mirena, 4 wk f/u meds, pt states her joints have been really sore., Meds reviewed by pt,no longer taking:Fioricet, Z-pack-AB, not feeling well, chest discomfort, pt did not wish to discuss w/ nurse, pt wants to discuss her concerns with dr. Connor, Medications reviewed w/pt,med. list is correct -JJ, Fioricet medication not working, Sinus infection, stomach discomfort, pt states stomach pain is off and on, pt was supposed to have an ultra sound on [place] in Jul that she never had, pt wants to discuss headaches, Medications reviewed w/pt,med. list is correct sc, Fibromyalgia acting up, Vicodin not working. Can wait, ear trouble, right ear, when she moves her head she says she feels something moving in there, hears something crackling, ok for student, pt not feeling well, dizzy, light headed, and nausea, Medications reviewed w/pt,med. list is correct-sh, feels dizzy all the time, nausea when riding in car, increased dizziness with mvmt, RT HAND, 3RD DIGIT TRIGGER FINGER, Meds reviewed by pt,no longer taking: amitriptyline, omeprazole BID,but takes it once a day-sh, injured finger years ago playing basketball, very painful when she hits it on something, pain goes into wrist up into elbow, Trigger finger, chest discomfort, pt states that she get chest pain on the left side - states sometimes it makes her nauseous, some back pain, and feels like shes going to go threw, pt states that her 3rd digit on her right hand is bothering her - she did brake it a long time ago, pt states that after intercourse her and her partner are itchy afterwards - doesn't know why neither of them have ever been with someone else, Medications reviewed w/pt,med. list is correct -ARTEMIO, Need to add #'s to pt's chart, 1 mos f/u new medication, pt states that when she first started the amitriptyline it kept her up the first two night - she kept taking it she now is up late and find herself sleeping a lot during the day - doesn't really feel like its helping with the pain, feels like fibro is getting worse - shes getting fustrated, Medications reviewed w/pt,med. list is correct -JMJ, med f/u, pt states that the savella didn't work , Meds reviewed by pt,no longer taking: levaquin -JMJ, 1 month f/u, 1 mos f/u new medication, ?bronchitis, pt states that it started a few days ago / coughing a lot with a lot of green plegm - throat/chest cervantes, heads pounding, tired, ears ring no fever, Meds reviewed by pt,no longer taking: savella -HEAVENW, blood draw, 3 MO FU, pt states like the fibromyalgia is getting worse - states that the pain is increasing and her memory is going with it, Medications reviewed w/pt,med. list is correct -JMW, Anxiety med-, Chest discomfort, pt states that since one o'clock this morning she has had sharp pain on and off, sometimes more intense then others - sometimes its a throabing pain and at times it seems to match her heartbeats, Medications reviewed w/pt,med. list is correct -JMW, 1 mo f/u back pain, pt states that is she does some stretching in the morning it helps a little bit - but she feel that things are just okay, pt states that he stomach , Medications reviewed w/pt,med. list is correct -JMW, 1 mos f/u back pain-dasia'd by pt 08/07 AP, gallbladder polyp, abd pain, Meds reviewed by pt,no longer taking: Meclizine-sh, had a reaction to Meclizine, tongue numb and slurring of words. 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 list is correct -JMW, flu shot - pt doesn't want, f/u labwork, COMP REV-new pcp former PV, flu shot, job wants he to have a physical and a drug test, haven't been feel overally well - would like to talk to you about it, Meds reviewed by pt,no longer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
[2022-12-09 15:52] VITALS: BP 143/72; PULSE 73; RESP 16; TEMP 36.8; O2SAT 99
[2022-12-09 17:18] LABS: Abs Immature Grans 0.02 10^3/uL (0.0-0.06); Absolute Basophil Count 0.07 10^3/uL (0.0-0.2); Absolute Lymphocyte Count 2.33 10^3/uL (1.2-3.4); Absolute Monocyte Count 0.49 10^3/uL (0.1-0.8); Absolute Neutrophil Count 4.21 10^3/uL (1.2-6.7); Eosinophils % 2.7; HCT 30.1 % (36.0-46.0); HGB 8.7 g/dL (11.2-15.7); Immature Grans % 0.3; Lymphocytes % 31.8; MCH 20.7 pg (27.0-33.0); MCHC 28.9 % (32.0-36.0); MCV 72 fL (80-95); MPV 9.7 fL (8.0-11.0); Monocytes % 6.7; Neutrophils % 57.5; RBC 4.21 10^6/uL (3.93-5.22); RDW 18.6 % (11.7-14.6); RDW-SD 47.5 fL; WBC 7.32 10^3/uL (4.4-10.8)
[2022-12-09 17:21] LABS: Anion Gap 7.5 mmol/L (3-11); BUN 10 mg/dL (7-18); CO2 28.5 mmol/L (21.0-32.0); CREATININE 0.9 mg/dL (0.55-1.02); Calcium 9.2 mg/dL (8.5-10.1); Chloride 103 mmol/L (98-107); Glucose 106 mg/dL (74-106); Potassium 3.5 mmol/L (3.5-5.1); Sodium 139 mmol/L (136-145)
--- NOTE | 2022-12-09 17:28 | ED.GENADUL_ITS ---
Discharge Plan Disposition Patient Disposition: Home Condition: Improving Discharge Details Clinical Impression: Blurred vision, right eye, Facial paresthesia, Headache, Iron deficiency anemia Primary Care Provider: Franky Smith ED Provider: Rashmi Guallpa Home Meds and New Rx's Prescriptions: Continued albuterol sulfate [Proventil HFA] 6.7 GM HFA aerosol inhaler 2 puff Inhalation PRN acetaminophen [Tylenol] 325 MG tablet 650 mg PO Q4H PRN [id number] Discharge Instructions Instructions: Migraine Headache (ED), Paresthesia (ED), Blurred Vision (ED), Anemia (ED), Ocular Migraine (ED), General Headache (ED) Additional Instructions: Your blood tests today showed that you low hemoglobin which is likely consistent with an iron deficiency anemia. You were given 1 dose of iron here and it is recommended that you start taking a daily iron. The remainder of your blood tests and imaging today are reassuring and show no evidence of acute concerning findings. Your symptoms were discussed with [facility] neurology and they recommend you follow-up with your primary care doctor for reevaluation. Your symptoms could possibly be due to a complex migraine. If your symptoms do not improve or worsen, you may need follow-up with neurology or consideration of an MRI brain. Call your primary care doctor's office tomorrow to schedule follow-up appointment for reevaluation within the next week and for recheck of your hemoglobin level. Return immediately to the emergency department if you develop any worsening or new concerning symptoms. 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 Vitals within normal limits. Patient appears generally comfortable and nontoxic. She has no report of fever, nasal discharge or sinus tenderness to suggest a sinus infection. She has no fever, neck pain, posterior headache or meningeal signs to suggest meningitis. As she reports tingling the right side of her face and pain in her right forehead and the top of her head, shingles certainly could be a possibility. As she has pain associated with right eye blurry vision and facial tingling and has a history of migraines, a complex migraine is in the differential. As her symptoms are associated with pain, CVA or TIA appear less likely, but considering her report of right eye blurry vision, will obtain screening labs, CTA head and neck and treat with fluid bolus, migraine cocktail with IV Decadron, IV Tylenol, IV Compazine and IV Benadryl and reassess. Visual acuity within normal limits. 1929 --Labs and imaging reviewed. Normal white blood cell count. Hemoglobin 8.7 compared to 12.2 in 2016. She has a low MCV and MCHC consistent likely with microcytic anemia. She has normal electrolytes. I obtained an iron and ferritin level which was low and a TIBC which was slightly high. CTA head and neck negative for acute findings. 2019 --Case discussed with [facility] neurology --recommend testing visual solis which were unremarkable. Agree that presentation does not appear consistent with CVA and may be consistent with migraine. No other acute recommendations at this time. Patient can follow-up with her PCP for reevaluation and continue to treat her headache with Tylenol or ibuprofen. Discussed CBC results with patient and that it appears consistent with iron deficiency anemia. She denies any sources of bleeding including epistaxis, hemoptysis, hematuria, rectal bleeding or heavy vaginal bleeding. She states her periods have become shorter with less bleeding. She states she is mainly followed at [facility] and has been told that she has anemia and is iron deficient. She states she was prescribed iron but states she usually forgets to take it. She remains hemodynamically stable and I feel that she is appropriate for discharge home. She was given a dose of iron here and advised to start taking a daily iron. She was advised to call her PCP tomorrow for follow-up within the next week. Usual and customary return precautions given prior to discharge. Medical Records Medical records reviewed: Yes I reviewed the patient's medical records. Imaging Data Radiologic Study: Radiologist's impression: CT BRAIN ? NECK CTA CLINICAL HISTORY: ? R sided BERNARDO, R face tingling, R eye blurry vision. ? TECHNIQUE:? Imaging Protocol:? Axial CT angiography was performed with multi- slice acquisition and multi-planar and/or 3D reconstructions. CONTRAST MATERIAL:? Intravenous: Omnipaque 350 Contrast volume:structured data in ml COMPARISON:? CT ABD ? PELVIS WITH CONTRAST from 05/15/2010 FINDINGS: CTA Neck W: Aortic arch anatomy: The aortic arch anatomy is conventional and there is no significant stenosis at the origin of the great vessels off of the aortic arch.? No intimal flap evident. Anterior circulation: Both common carotid arteries ascend with normal luminal diameters. At the level the carotid bulbs and proximal internal carotid arteries there is minimal plaque without hemodynamically significant stenosis evident. Internal carotid arteries above this level are patent in the upper neck and skull base. Posterior circulation: Both vertebral arteries originate in conventional fashion off of the subclavian arteries and there is no obvious stenosis at the origin of the vertebral arteries. The right vertebral artery is dominant.? Both vertebral arteries contribute to the formation of the basilar artery at the skull base. No evidence of vertebral artery thrombosis nor dissection. CTA Brain W: Anterior circulation: Both internal carotid arteries are patent in the skull base-carotid canals as well as within the cavernous sinuses. The supraclinoid aspects of the ICAs are patent.? Both A1 segments are patent as are the anterior cerebral arteries and there is no evidence of aneurysm at the level of the anterior communicating artery. Both middle cerebral arteries are patent with no evidence of significant stenosis nor intraluminal thrombus.? There also no aneurysms of these vessels. Posterior circulation: The basilar artery ascends in the midline.? Distally it gives off patent bilateral superior cerebellar arteries. Above this level the basilar artery terminates as patent bilateral posterior cerebral arteries. There is no evidence of aneurysm at the tip of the basilar artery nor elsewhere in the [id number]. CT BRAIN: There is no evidence of intracranial hemorrhage, mass effect, or shift of midline structures.? There are no extra-axial fluid collections.? Ventricles are not enlarged or shifted.? There are no ring enhancing lesions in the brain and no abnormal meningeal enhancement. IMPRESSION: 1. Patent carotid arteries in the neck.? No hemodynamically significant stenosis.? 2.? Patent vertebral arteries. 3.? Patent intracranial arteries. 4. No acute intracranial findings.? No ring enhancing lesions in the brain and there is no abnormal meningeal enhancement. XR CHEST 2V PA ? LATERAL CLINICAL HISTORY: ? possible cva, r/o acute disease. ? TECHNIQUE:? 2D digital imaging was performed. COMPARISON:? No exams were available for comparison FINDINGS: 2 views: Heart size is normal.? The mediastinum is not widened. Lungs are clear.? No infiltrates nor pleural effusions. IMPRESSION: No acute pulmonary findings. Lab Data Lab results reviewed: Yes I reviewed the patient's lab results. Labs: Laboratory Tests Range/Units 12/09/22 12/09/22 12/09/22 16:21 16:21 16:21 WBC (4.4-10.8) 10^3/uL 7.32 RBC (3.93-5.22) 10^6/uL 4.21 Hgb (11.2-15.7) g/dL 8.7 L Hct (36.0-46.0) % 30.1 L MCV (80-95) fL 72 L MCH (27.0-33.0) pg 20.7 L MCHC (32.0-36.0) % 28.9 L RDW (11.7-14.6) % 18.6 H Plt Count (130-400) 10^3/uL 488 H MPV (8.0-11.0) fL 9.7 Immature Gran % 0.3 Neutrophils % 57.5 Lymphocytes % 31.8 Monocytes % 6.7 Eosinophils % 2.7 Basophils % 1.0 Nucleated RBC % (0.0-0.3) % 0.0 Absolute Neutrophils (1.2-6.7) 10^3/uL 4.21 Absolute Lymphocytes (1.2-3.4) 10^3/uL 2.33 Absolute Monocytes (0.1-0.8) 10^3/uL 0.49 Absolute Eosinophils (0.0-0.7) 10^3/uL 0.20 Absolute Basophils (0.0-0.2) 10^3/uL 0.07 RBC Morphology See Below Polychromasia Present Hypochromasia 2+ Poikilocytosis 1+ Anisocytosis 2+ Microcytosis 1+ Sodium (136-145) mmol/L 139 Potassium (3.5-5.1) mmol/L 3.5 Chloride (98-107) mmol/L 103 Carbon Dioxide (21.0-32.0) mmol/L 28.5 Anion Gap (3-11) mmol/L 7.5 BUN (7-18) mg/dL 10 Creatinine (0.55-1.02) mg/dL 0.9 Est GFR (CKD-EPI 2020) (mL/min/1.73m2) 83.40 Glucose (74-106) mg/dL 106 Calcium (8.5-10.1) mg/dL 9.2 Iron (50-170) ug/dL TIBC (250-450) ug/dL Ferritin (8-252) ng/mL 6 L Total Bilirubin (0.2-1.0) mg/dL 0.2 Conjugated Bilirubin (0.0-0.2) mg/dL 0.1 AST (15-37) U/L 16 ALT (14-59) U/L 19 Alkaline Phosphatase (46-116) U/L 79 Total Protein (6.4-8.2) g/dL 7.8 Albumin (3.4-5.0) g/dL 4.1 Range/Units 12/09/22 16:21 WBC (4.4-10.8) 10^3/uL RBC (3.93-5.22) 10^6/uL Hgb (11.2-15.7) g/dL Hct (36.0-46.0) % MCV (80-95) fL MCH (27.0-33.0) pg MCHC (32.0-36.0) % RDW (11.7-14.6) % Plt Count (130-400) 10^3/uL MPV (8.0-11.0) fL Immature Gran % Neutrophils % Lymphocytes % Monocytes % Eosinophils % Basophils % Nucleated RBC % (0.0-0.3) % Absolute Neutrophils (1.2-6.7) 10^3/uL Absolute Lymphocytes (1.2-3.4) 10^3/uL Absolute Monocytes (0.1-0.8) 10^3/uL Absolute Eosinophils (0.0-0.7) 10^3/uL Absolute Basophils (0.0-0.2) 10^3/uL RBC Morphology Polychromasia Hypochromasia Poikilocytosis Anisocytosis Microcytosis Sodium (136-145) mmol/L Potassium (3.5-5.1) mmol/L Chloride (98-107) mmol/L Carbon Dioxide (21.0-32.0) mmol/L Anion Gap (3-11) mmol/L BUN (7-18) mg/dL Creatinine (0.55-1.02) mg/dL Est GFR (CKD-EPI 2020) (mL/min/1.73m2) Glucose (74-106) mg/dL Calcium (8.5-10.1) mg/dL Iron (50-170) ug/dL 13 L TIBC (250-450) ug/dL 451 H Ferritin (8-252) ng/mL Total Bilirubin (0.2-1.0) mg/dL Conjugated Bilirubin (0.0-0.2) mg/dL AST (15-37) U/L ALT (14-59) U/L Alkaline Phosphatase (46-116) U/L Total Protein (6.4-8.2) g/dL Albumin (3.4-5.0) g/dL HPI General Mode of arrival: ambulatory . Date/Time Provider Initiated Documentation: 12/09/22 15:40 . Limitations to Documentation: no limitations . Information obtained by: patient . HPI Narrative: Patient is a 37-year-old female with a history of migraines, asthma and depression who presents for a 30-minute period of right eye blurry vision followed by right facial tingling and right-sided headache since then that started while at school today. 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 She admits to her vision appearing haywood and fuzzy in her right eye which lasted approximately 30 minutes and then she noted tingling in her right facial cheek. She states after this she felt a sharp and aching feeling in the right side of the top of her head. She admits to some dizziness at the time of the symptoms which she describes as lightheadedness. She has not taken any medication for pain. She denies any fever, sore throat, nasal discharge, chest pain, difficulty breathing, abdominal pain, recent illness, extremity numbness or weakness, recent injury, new medications. Related Data Home Medications Medication Instructions Recorded Confirmed acetaminophen 325 mg tablet 650 mg PO Q4H PRN PRN 11/27/15 05/08/17 (Tylenol) albuterol sulfate 90 mcg/actuation 2 puff inhalation PRN 10/19/17 aerosol inhaler (Proventil HFA) Previous Rx's Medication Instructions Recorded acetaminophen 325 mg tablet 650 mg PO Q4H PRN PRN 11/27/15 (Tylenol) Allergies Allergy/AdvReac Type Severity Reaction Status Date / Time paroxetine [From Paxil] Allergy Intermediate Unverified 10/19/17 09:35 loratadine Allergy Mild Itching Unverified 10/19/17 09:35 bupropion HCl Allergy Unknown throat Unverified 10/19/17 09:35 [From Wellbutrin] closes up duloxetine HCl Allergy Unknown Nausea Unverified 10/19/17 09:35 [From Cymbalta] pregabalin [From Lyrica] Allergy Unknown Dizziness/L Unverified 10/19/17 09:35 ightheade aspirin AdvReac Severe Lowers Unverified 10/19/17 09:35 Platelets acetaminophen [From Percocet] AdvReac Mild Dizziness/L Unverified 10/19/17 09:35 ightheade oxycodone [From Percocet] AdvReac Mild Dizziness/L Unverified 10/19/17 09:35 ightheade meclizine AdvReac Unknown Unverified 10/19/17 09:35 sertraline [From Zoloft] AdvReac Unverified 10/19/17 09:35 General Stated Complaint: GenMedical MARIE: 3 Review of Systems All systems reviewed & are unremarkable except as noted in HPI and below Constitutional Constitutional: Reports as per HPI, Denies chills, Denies fever(s) and Reports headache(s) Eyes Eyes: Reports blurry vision ENT Ears, Nose, Mouth, and Throat: Denies dizziness, Reports headache(s), Denies sore throat and Denies throat swelling Cardiovascular Cardiovascular: Denies chest pain and Denies dyspnea Respiratory Respiratory: Denies cough and Denies dyspnea Gastrointestinal Gastrointestinal: Denies abdominal pain, Denies diarrhea and Denies vomiting Genitourinary Genitourinary: Denies hematuria and Denies dysuria Musculoskeletal Musculoskeletal: Denies back pain, Denies numbness and Reports tingling Integumentary/Breasts Skin/Breast: Denies lesions and Denies rash Neurologic Neurologic: Denies dizziness, Reports headache(s), Denies localized weakness, Denies numbness and Reports tingling Allergic/Immunologic Allergic/Immunologic: Denies throat swelling PFSH All Active Problems (Updated 12/09/22 @ 20:50 by Rashmi Guallpa DO) Blurred vision, right eye (Acute) Facial paresthesia (Acute) Headache (Acute) Iron deficiency anemia (Acute) Medical History (Updated 12/09/22 @ 20:50 by Rashmi Guallpa DO) Asthma History of depression Migraine Ureterolithiosis Family History (Updated 12/09/13 @ 21:38 by ) Other Personal history of malignant neoplasm Social History Smoking/Tobacco Use Status: Never Smoking risk assessment performed?: Yes Alcohol Intake: never Drug use: Never Substance use type: does not use Do you feel safe at home: Yes Do you feel safe in your relationship?: Yes Exam Const General: cooperative and no acute distress Orientation: alert, awake and oriented x3 HENMT Head: normal to inspection Ears: hearing grossly normal bilaterally, external ears normal and TM's normal bilaterally Face and sinus: normal facial exam and sinuses nontender Throat: posterior oropharynx normal, uvula midline and no peritonsillar masses Eyes General: appearance normal, both eyes and all related structures Pupils: PERRL EOM: EOM intact bilaterally Neck Neck: normal visual inspection and No submandibular swelling Lymphatic: no lymphadenopathy noted Chest Chest: normal inspection of the chest and no tenderness Resp Effort & Inspection: normal respiratory effort and able to speak in complete sentences Auscultation: clear to auscultation bilaterally Cardio Rate: regular rate Rhythm: regular rhythm GI Inspection: normal to inspection Palpation: soft, not firm, not rigid and nontender Auscultation: hypoactive bowel sounds Back/Spine/Pelvis Thoracic/Lumbar Spine: thoracic and lumbar spine normal to inspection Skin General skin exam: no rashes or lesions noted Neuro General: patient alert, patient awake, patient oriented x3, moves all extremities and no meningeal signs Cranial Nerves: CN's II-XI intact bilaterally Cognition: normal cognition Speech: speech normal Motor: muscle tone normal throughout and strength 5/5 throughout Sensory Exam: no sensory deficits noted Extrem General: normal to inspection, full ROM, capillary refill normal, no calf tenderness bilaterally and no edema Psych Appearance: grossly normal Mental Status: mental status grossly normal Speech and Movement: speech and movement normal Affect: normal affect Course Vital Signs Vital signs: Vital Signs Temperature 98.2 F 12/09/22 15:52 Pulse 73 12/09/22 15:52 Respiratory Rate 16 12/09/22 15:52 Blood Pressure 143/72 H 12/09/22 15:52 Pulse Oximetry 99 12/09/22 15:52 Temperature 98.2 F 12/09/22 15:52 Temperature Source Skin 05/25/23 15:52 Pulse 73 12/09/22 15:52 Respiratory Rate 16 12/09/22 15:52 Respiratory Effort Normal, Non-Labored 12/09/22 16:27 Blood Pressure 143/72 H 12/09/22 15:52 Blood Pressure Position Sitting 12/09/22 15:52 Pulse Oximetry 99 12/09/22 15:52 Oxygen Delivery Method Room Air 12/09/22 15:52 Oxygen Flow Rate 0 12/09/22 15:52 Pain Level 2 12/09/22 15:52 Lab/Test Results Lab/Test Results: Laboratory Tests Range/Units 12/09/22 16:21 Sodium (136-145) mmol/L 139 Potassium (3.5-5.1) mmol/L 3.5 Chloride (98-107) mmol/L 103 Carbon Dioxide (21.0-32.0) mmol/L 28.5 Anion Gap (3-11) mmol/L 7.5 BUN (7-18) mg/dL 10 Creatinine (0.55-1.02) mg/dL 0.9 Est GFR (CKD-EPI 2020) (mL/min/1.73m2) 83.40 Glucose (74-106) mg/dL 106 Calcium (8.5-10.1) mg/dL 9.2 POC- Test(urine) Negative
[2022-12-09] MEDS: Normal Saline - Diluent 50 ML VIAL IJ (17:29)
[2022-12-09] MEDS: Omnipaque 350 MG/ML 100 ML BTL IJ (17:30)
[2022-12-09] MEDS: Normal Saline Flush 10 ML SYR IVP (17:30)
[2022-12-09 17:41] LABS: Anisocytosis 2+; Diff Comment RBC Morph Reviewed; Hypochromasia 2+; Microcytosis 1+; Platelet Count 488 10^3/uL (130-400); Polychromasia Present
[2022-12-09 17:42] LABS: Poikilocytes 1+
[2022-12-09] MEDS: Normal Saline 1,000 ML 1000 ML IV (17:44)
[2022-12-09] MEDS: Dexamethasone 10 MG/ML VIAL IVP (17:46)
[2022-12-09] MEDS: diphenhydrAMINE 50 MG/ML VIAL 25 MG IVP (17:48)
--- NOTE | 2022-12-09 17:48 | DI.RAD_ITS ---
Exam(s) XR CHEST 2V PA LATERAL EXAM: XR CHEST 2V PA LATERAL CLINICAL HISTORY: possible cva, r/o acute disease. TECHNIQUE: 2D digital imaging was performed. COMPARISON: No exams were available for comparison FINDINGS: 2 views: Heart size is normal. The mediastinum is not widened. Lungs are clear. No infiltrates nor pleural effusions. IMPRESSION: No acute pulmonary findings. DATA REPOSITORY: RADIATION DOSE DELIVERED:
--- NOTE | 2022-12-09 17:48 | DI.CT_ITS ---
Exam(s) CT BRAIN NECK CTA EXAM: CT BRAIN NECK CTA CLINICAL HISTORY: R sided BERNARDO, R face tingling, R eye blurry vision. TECHNIQUE: Imaging Protocol: Axial CT angiography was performed with multi-slice acquisition and mu lti-planar and/or 3D reconstructions. CONTRAST MATERIAL: Intravenous: Omnipaque 350 Contrast volume:structured data in ml COMPARISON: CT ABD PELVIS WITH CONTRAST from 05/15/2010 FINDINGS: CTA Neck W: Aortic arch anatomy: The aortic arch anatomy is conventional and there is no significant stenosis at the origin of the great vessels off of the aortic arch. No intimal flap evident. Anterior circulation: Both common carotid arteries ascend with normal luminal diameters. At the level the carotid bulbs and proximal internal carotid arteries there is minimal plaque without hemodynamically significant stenosis evident. Internal carotid arteries above this level are patent in the upper neck and skull base. Posterior circulation: Both vertebral arteries originate in conventional fashion off of the subclavian arteries and there is no obvious stenosis at the origin of the vertebral arteries. The right vertebral artery is dominant. Both vertebral arteries contribute to the formation of the b asilar artery at the skull base. No evidence of vertebral artery thrombosis nor dissection. CTA Brain W: Anterior circulation: Both internal carotid arteries are patent in the skull base-carotid canals as well as within the cave rnous sinuses. The supraclinoid aspects of the ICAs are patent. Both A1 segments are patent as are the anterior cer ebral arteries and there is no evidence of aneurysm at the level of the anterior communicating artery . Both middle cerebral arteries are patent with no evidence of significant stenosis nor intraluminal th rombus. There also no aneurysms of these vessels. Posterior circulation: The basilar artery ascends in the midline. Distally it gives off patent bilateral superior cerebella r arteries. Above this level the basilar artery terminates as patent bilateral posterior cerebral arteries. There is no evidence of aneurysm at the tip of the basilar artery nor elsewhere in the [id number] is. CT BRAIN: There is no evidence of intracranial hemorrhage, mass effect, or shift of midline structures. There are no extra-axial fluid collections. Ventricles are not enlarged or shifted. There are no ring enh ancing lesions in the brain and no abnormal meningeal enhancement. IMPRESSION: 1. Patent carotid arteries in the neck. No hemodynamically significant stenosis. 2. Patent vertebral arteries. 3. Patent intracranial arteries. 4. No acute intracranial findings. No ring enhancing lesions in the brain and there is no abnormal m eningeal enhancement. RADIATION DOSE DELIVERED: 2,037.12mGy.cm Total DLP DATA REPOSITORY: All CT scans at this facility are submitted to the National Radiology Data Registry (NRDR) Dose Index Registry (DIR) with the [employer] ([employer]). RADIATION OPTIMIZATION: All CT scans at this facility use at least one of these dose optimization te chniques: automated exposure control; mA and/or kV adjustment per patient size (includes targeted exa ms where dose is matched to clinical indication); or iterative reconstruction.
[2022-12-09] MEDS: Prochlorperazine 10 MG/2 ML VIAL IVP (17:50)
[2022-12-09] MEDS: ACETAMINOPHEN 1,000 MG/100 ML BTL 400 MG IVPB (17:51)
--- NOTE | 2022-12-09 18:08 | DI.VRAD_ITS ---
PROCEDURE INFORMATION: Exam: XR Chest Exam date and time: 12/09/2022 5:39 PM Age: 37 years old Clinical indication: Other: R/O acute disease ? CVA TECHNIQUE: Imaging protocol: Radiologic exam of the chest. Views: 2 views. COMPARISON: CR CHEST 2 VIEWS PA,LAT 08/01/2016 7:56 PM FINDINGS: Lungs: Unremarkable. No consolidation. Pleural spaces: Unremarkable. No pleural effusion. No pneumothorax. Heart/Mediastinum: Unremarkable. No cardiomegaly. Bones/joints: Unremarkable. IMPRESSION: No acute findings. Dictated and Authenticated by: Guevara Kim MD. Ordering:MARGARET Caraballo MD
--- NOTE | 2022-12-09 18:12 | DI.VRAD_ITS ---
PROCEDURE INFORMATION: Exam: CTA Head With Contrast, Arteriography Exam date and time: 12/09/2022 5:30 PM Age: 37 years old Clinical indication: Other: Headage, right sided face tingling TECHNIQUE: Imaging protocol: Computed tomographic angiography of the head with contrast. Exam focused on the arteries. 3D rendering (Not supervised by radiologist): MIP and/or 3D reconstructed images were created by the technologist. Contrast material: OMNIPAQUE 350; Contrast volume: 100 ml; Contrast route: INTRAVENOUS (IV); COMPARISON: No relevant prior studies available. FINDINGS: ANTERIOR CIRCULATION: Right internal carotid artery: Intracranial segment is patent with no significant stenosis. No aneurysm. Right middle cerebral artery: No occlusion or significant stenosis. No aneurysm. Right anterior cerebral artery: No occlusion or significant stenosis. No aneurysm. Left internal carotid artery: Intracranial segment is patent with no significant stenosis. No aneurysm. Left middle cerebral artery: No occlusion or significant stenosis. No aneurysm. Left anterior cerebral artery: No occlusion or significant stenosis. No aneurysm. POSTERIOR CIRCULATION: Right vertebral artery: No occlusion or significant stenosis. No aneurysm. Left vertebral artery: No occlusion or significant stenosis. No aneurysm. Basilar artery: No occlusion or significant stenosis. No aneurysm. Right posterior cerebral artery: No occlusion or significant stenosis. No aneurysm. Left posterior cerebral artery: No occlusion or significant stenosis. No aneurysm. Brain: No definite mass, mass effect, or midline shift. Cerebral ventricles: No ventriculomegaly. Bones/joints: Unremarkable. No acute fracture. Soft tissues: Unremarkable. IMPRESSION: No large vessel stenosis or occlusion. PROCEDURE INFORMATION: Exam: CTA Neck With Contrast Exam date and time: 12/09/2022 5:30 PM Age: 37 years old Clinical indication: Other: Headage, right sided face tingling TECHNIQUE: Imaging protocol: Computed tomographic angiography of the neck with contrast. 3D rendering (Not supervised by radiologist): MIP and/or 3D reconstructed images were created by the technologist. Contrast material: OMNIPAQUE 350; Contrast route: INTRAVENOUS (IV); COMPARISON: No relevant prior studies available. FINDINGS: Right common carotid artery: No stenosis. No dissection or occlusion. Right internal carotid artery: No stenosis of the extracranial segment. No dissection or occlusion. Right external carotid artery: No occlusion or stenosis of the origin. Left common carotid artery: No stenosis. No dissection or occlusion. Left internal carotid artery: No stenosis of the extracranial segment. No dissection or occlusion. Left external carotid artery: No occlusion or stenosis of the origin. Right vertebral artery: No stenosis. No dissection or occlusion. Left vertebral artery: No stenosis. No dissection or occlusion. Soft tissues: Normal. No significant soft tissue swelling. Bones/joints: No acute fracture. IMPRESSION: No stenosis or occlusion. REFERENCES: NASCET CRITERIA. The degree of stenosis in the cervical segment of the internal carotid artery is based on NASCET criteria. Normal is no stenosis. Mild is less than 50% stenosis. Moderate is 50-69% stenosis. Severe is 70% to 99% stenosis. Total occlusion is no detectable patent lumen. Dictated and Authenticated by: Guevara Kim MD. Ordering:MARGARET Caraballo MD
[2022-12-09 18:26] LABS: Iron 13 ug/dL (50-170); Total Iron Binding Capacity 451 ug/dL (250-450)
[2022-12-09 18:36] VITALS: PULSE 84; TEMP 36.5; O2SAT 100
[2022-12-09 18:41] LABS: ALT 19 U/L (14-59); AST 16 U/L (15-37); Albumin 4.1 g/dL (3.4-5.0); Alkaline Phosphatase 79 U/L (46-116); Bilirubin, Total 0.2 mg/dL (0.2-1.0); Ferritin 6 ng/mL (8-252); Total Protein 7.8 g/dL (6.4-8.2)
[2022-12-09 18:50] LABS: Bilirubin, Direct 0.1 mg/dL (0.0-0.2)
[2022-12-09 19:57] VITALS: BP 137/62; PULSE 72; RESP 16; TEMP 36.9; O2SAT 100
[2022-12-09] MEDS: Ferrous Sulfate 325 MG TAB PO (21:08)
[2022-12-09 21:14] VITALS: BP 116/85; PULSE 82; RESP 18; TEMP 36.3; O2SAT 97
== END 2022-12-09 21:29 | disposition home or self-care (01) ==
PROVIDERS: Emergency Provider Physician Assistant; PCP Nurse Practitioner
DX: R51.9 Headache, unspecified (principal); R20.0 Anesthesia of skin; D50.9 Iron deficiency anemia, unspecified; H53.8 Other visual disturbances
CPT/HCPCS: 36415; 70496; 70498; 80048; 80076; 81025; 96361; 96365; 96375; 99285; 71046; 82728; 83540; 83550; 85025; 99284; J0131; J0780; J1100; J1200; J3490